=== PATIENT | female | born 2000 | race Caucasian/White ===

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

== ENCOUNTER → 2021-02-24 15:52 | Outpatient (CLI) | payer OTHER, SELFPAY ==
[2021-02-24 15:33] VITALS: BMI 33.3
[2021-02-24 17:43] LABS: Chlamydia Trachomatis by PCR Negative (Negative); Neisserai gonorrhoeae by PCR Negative (Negative); Probe Check PASS; Sample Adequacy Control PASS; Specimen Processing Control PASS
== END ==
PROVIDERS: PCP Family Medicine; Visit Provider Nurse Practitioner Women's Health
DX: Z11.3 Encounter for screening for infections with a predominantly sexual mode of transmission (principal)
CPT/HCPCS: 87491; 87591

== ENCOUNTER → 2022-04-21 | Outpatient (CLI) | payer OTHER, SELFPAY ==
[2022-04-28 10:52] LABS: HPV Reflexed? NOT INDICATED
== END | disposition home or self-care (01) ==
LOC: LABSPEC 16:05
PROVIDERS: PCP Family Medicine; Referring Provider Nurse Practitioner Women's Health; Visit Provider Nurse Practitioner Women's Health
DX: Z12.4 Encounter for screening for malignant neoplasm of cervix (principal)
CPT/HCPCS: 88175; G0145

== ENCOUNTER 2023-11-11 10:38 | Emergency (ER) | payer BC, SELFPAY ==
[2023-11-11 10:39] VITALS: BP 141/79; PULSE 141; RESP 16; TEMP 36.1; O2SAT 100; BMI 28.6
[2023-11-11 11:15] LABS: Absolute Neutrophil Count 11.1 X10^3/uL (2.0-7.7); Basophil# 0.07 X10^3/uL; Basophil% 0.5 % (0-1); Eosinophil# 0.03 X10^3/uL; Eosinophils% 0.2 % (0-5); Hematocrit 40.8 % (37-47); Hemoglobin 13.4 g/dL (12.0-15.0); Lymphocyte % 13.9 % (19-41); Mean Corp Hgb Conc 32.8 g/dL (32-36); Mean Corpuscular Hgb 28.6 pg (27.0-32.0); Mean Corpuscular Volume 87.2 fL (81-99); Monocyte# 0.54 X10^3/uL; Monocyte% 3.9 % (0-10); NRBC Flagged by Analyzer 0 % (0-5); Neutrophil # 11.11 X10^3/uL (2.7-7.7); Neutrophil % 81.1 % (47-70); Platelet Count 334 K/mm3 (150-450); RBC Distribution Width CV 13.2 % (11.6-14.6); RBC Distribution Width SD 41.6 fl (35.1-43.9); Red Blood Count 4.68 M/mm3 (4.2-5.4); White Blood Count 13.7 K/mm3 (4.4-11.0)
--- NOTE | 2023-11-11 11:20 | RAD_ITS ---
STUDY: X-RAY CHEST REASON FOR EXAM: Female, 23 years old. Dyspnea TECHNIQUE: Single AP portable view of the chest. COMPARISON: None. FINDINGS: EKG electrodes are seen The lungs are clear and expanded. There is no demonstrated pleural abnormality. Normal size heart. Normal mediastinum and andrey. Normal visualized pulmonary arteries. Normal visualized aortic arch and descending thoracic aorta. Normal visualized thoracic spine. Normal visualized ribs, clavicles, and shoulders. There is no demonstrated abnormality of the visualized soft tissue structures of the upper abdomen. RAD/Chest 1 View (Portable) IMPRESSION: Normal x-ray examination of the chest. Electronically Signed: Rylan Elias MD at 11:56 EDT ,
--- NOTE | 2023-11-11 11:24 | EX.ED.DYSGE1 ---
HPI History of Present Illness Chief Complaint: Palpitations PFSH PFSH Allergy/AdvReac Type Severity Reaction Status Date / Time Latex, Natural Rubber Allergy HIVES Verified 11/11/23 10:40 Social History Smoking Status: Never smoker EXAM Physical Exam Const Vital Signs: 11/11/23 10:39 11/11/23 10:59 Temperature 96.9 F L Temperature Source Temporal Pulse Rate 141 H Respiratory Rate 16 Respiratory Effort Normal Non-Labored Blood Pressure 141/79 H Blood Pressure Mean 99 Pulse Ox 100 Oxygen Delivery Method Room Air MDM MDM Lab Data Labs: Laboratory Results - last 24 hr 11/11/23 10:55 WBC 13.7 H RBC 4.68 Hgb 13.4 Hct 40.8 MCV 87.2 MCH 28.6 MCHC 32.8 RDW Std Deviation 41.6 RDW Coeff of Stan 13.2 Plt Count 334 MPV 11.0 Immature Gran % (Auto) 0.400 Neut % (Auto) 81.1 H Lymph % (Auto) 13.9 L [place] % (Auto) 3.9 Eos % (Auto) 0.2 Baso % (Auto) 0.5 Absolute Neuts (auto) 11.1 H Absolute Lymphs (auto) 1.90 Nucleated RBC % 0 Discharge Plan Triage Chief Complaint: Palpitations ED Midlevel Provider: Edita Alfonso ED Provider: Clark Combs Dx/Rx/DC Orders Primary Care Provider: José Manuel Roach Referrals: José Manuel Roach DO [Primary Care Provider] -
[2023-11-11] MEDS: 0.9% Normal Saline (1000mL) 1,000 ML 999 ML IV (11:36)
[2023-11-11 11:37] LABS: D-Dimer Quantitative (DVT/PE) 0.31 FEU/ug/m (0.27-0.49)
[2023-11-11 11:45] LABS: Anion Gap 8 (5-15); BUN 8 mg/dL (7-18); BUN/Creat Ratio 8.4 RATIO (10-20); Calcium,Total 9.3 mg/dL (8.5-10.1); Chloride 111 mmol/L (98-107); Creatinine, Serum 0.95 mg/dL (0.55-1.02); EST Glomerular Filtration Rate 77 mL/min (>60); Est Glom Filt Rate - Afr Amer 93 mL/min (>60); Estimated Creatinine Clearance 95.15 ml/min; Glucose 138 mg/dL (74-106); Potassium 3.3 mmol/L (3.5-5.1); Sodium Level 140 mmol/L (136-145); Troponin-I HS < 3 pg/mL (3.0-54.0)
--- NOTE | 2023-11-11 12:04 | EX.ED.DYSGE1 ---
HPI <SATYA Lux - Last Filed: 11/11/23 15:40> History of Present Illness Chief Complaint: Palpitations Narrative Narrative: 23-year-old female with past medical history of anxiety developed palpitations last evening at dinner. She states she could feel her heart racing and her watch alerted her the rate was anywhere from 100 to 190 bpm. She felt better this morning but when she went into work around 9 AM the palpitations started again. She was not exerting herself in any way. She has no chest pain or shortness of breath. She has nausea without vomiting. This morning she had water and a banana. She normally has 1 cup of coffee per day but did not have any caffeine today. The only medication she is on is control. She does report a history of anxiety which is worsened over the last month since her father and she is trying to get reestablished with a counselor. PFSH <SATYA Lux Last Filed: 11/11/23 15:40> [facility] Home Medications metoprolol tartrate 25 mg tablet 25 mg PO BID #60 tabs 11/11/23 [Rx Last Taken Unknown] Allergy/AdvReac Type Severity Reaction Status Date / Time Latex, Natural Rubber Allergy HIVES Verified 11/11/23 10:40 Social History Smoking Status: Never smoker ROS <SATYA Lux Last Filed: 11/11/23 15:40> ROS ED ROS Narrative Constitutional: Negative for fever, chills, malaise. CVS: Positive for palpitations. Negative for chest pain, syncope. Respiratory: Negative for shortness of breath, cough, orthopnea. GI: Negative for abdominal pain, vomiting. EXAM <SATYA Lux Last Filed: 11/11/23 15:40> Physical Exam Narrative Exam Narrative: CONST: Patient sitting in no acute distress. EYES: Normal inspection. NECK: Normal inspection. RESP: No respiratory distress, CTAB. CVS: Tachycardic with regular rhythm, no murmur, no gallop. ABD: Soft and nontender, no guarding or rebound, nondistended. SKIN: Color normal, no rash, warm, dry, intact. EXTREMITIES: Normal appearance, no pedal edema. NEURO: Oriented x4. PSYCH: Normal affect. Const Vital Signs: 11/11/23 10:39 11/11/23 10:59 11/11/23 12:36 Temperature 96.9 F L Temperature Source Temporal Pulse Rate 141 H 68 Respiratory Rate 16 18 Respiratory Effort Normal Non-Labored Blood Pressure 141/79 H 115/69 Blood Pressure Mean 99 84 Pulse Ox 100 100 Oxygen Delivery Method Room Air Room Air 11/11/23 13:00 11/11/23 14:02 Temperature 97 F L Temperature Source Pulse Rate 81 90 Respiratory Rate 16 12 Respiratory Effort Blood Pressure 118/73 116/76 Blood Pressure Mean 88 89 Pulse Ox 98 98 Oxygen Delivery Method Room Air <Dr. Ilsa Manjarrez DO - Last Filed: 11/11/23 13:59> Physical Exam Const Vital Signs: 11/11/23 10:39 11/11/23 10:59 11/11/23 12:36 Temperature 96.9 F L Temperature Source Temporal Pulse Rate 141 H 68 Respiratory Rate 16 18 Respiratory Effort Normal Non-Labored Blood Pressure 141/79 H 115/69 Blood Pressure Mean 99 84 Pulse Ox 100 100 Oxygen Delivery Method Room Air Room Air 11/11/23 13:00 11/11/23 14:02 Temperature 97 F L Temperature Source Pulse Rate 81 90 Respiratory Rate 16 12 Respiratory Effort Blood Pressure 118/73 116/76 Blood Pressure Mean 88 89 Pulse Ox 98 98 Oxygen Delivery Method Room Air MDM <SATYA Lux - Last Filed: 11/11/23 15:40> [facility] MDM Narrative Medical decision making narrative: Differential: ACS, PE, thyroid abnormality, arrhythmia Patient has palpitations. She appears well and nontoxic. HR is 141 in triage with otherwise stable vital signs. During my examination she is in no distress and telemetry shows sinus tachycardia at 120 bpm. On exam rate is tachycardic but regular with no murmurs. Lungs clear. EKG is nonischemic. Labs show nonspecific white count of 13.7, potassium 3.3. TSH WNL. D-dimer and troponin are negative. CXR shows no acute process. Patient was given IV fluids and p.o. potassium. Repeat EKG at 1231 shows sinus rhythm at 64 bpm with no significant abnormality. There is no evidence of WPW. Case was discussed with Dr. Heck in cardiology who recommended metoprolol 25 mg twice daily. She was also placed on a 48-hour Holter monitor from the ED and instructed to follow-up with the cardiology office. She was discharged in stable condition. I have personally performed a face to face assessment of the patient and have reviewed the ALDO Note. I performed a substantive portion of the visit including all aspects of the following. My lezama findings include: History is [patient presents with tachycardia that started last night. She states that she had intermittent heart rates to 190 on her Apple Watch. She felt have a tightness in her chest. [place] little bit lightheaded. Never had anything like this happen before. She states her father a month ago and she has history of anxiety. Patient denies history of PE or DVT although she did have recent travel to [place] [address] This morning she felt better but then started having symptoms again so she presents for evaluation. Denies recent illness.] Exam is [HESANDOR-PERNARENDRA, EOMI. Cranial nerves II through XII grossly intact. TMs clear. Mucous membranes moist. No adenopathy. Cardiovascular-regular rate and rhythm without murmur or ectopy Lungs-clear to auscultation, chest wall stable without crepitus or subcu emphysema Abdomen-normoactive bowel sounds, soft, nontender, no rebound or rigidity, no peritoneal signs. Extremities-intact ?4, normal range of motion, normal pulses, atraumatic] Medical Decison Making [patient presents with tachycardia up to 190 documented on her Apple Watch. Concern for SVT based on history. No prior history of SVT. EKG here initially showed sinus rhythm with rate of 123 bpm with some nonspecific ST changes. CBC with differential slightly elevated, 13.7 with hemoglobin 13 and platelet count of 334. D-dimer was normal at 0.31. Troponin was negative less than 3. 1 view chest x-ray was unremarkable. I will obtain a repeat EKG that now while I am in the room heart rate down into the 70s and 80s. On the monitor appears that she may have a shortened [place] interval.] Repeat EKG showed sinus rhythm with rate of 64 bpm without any evidence of significant [place] shortening or delta wave. Did discuss case with cardiology who recommended beta-elisa metoprolol 25 mg twice a day and Holter monitor and outpatient follow-up. Discussed with patient she is and she is in agreement. Concern would be for SVT. Other additions or changes: [None] Lab Data Attestation: I reviewed the patient's lab results. Labs: Laboratory Results - last 24 hr 11/11/23 11/11/23 11/11/23 10:55 11:15 13:40 WBC 13.7 H RBC 4.68 Hgb 13.4 Hct 40.8 MCV 87.2 MCH 28.6 MCHC 32.8 RDW Std Deviation 41.6 RDW Coeff of Stan 13.2 Plt Count 334 MPV 11.0 Immature Gran % (Auto) 0.400 Neut % (Auto) 81.1 H Lymph % (Auto) 13.9 L [place] % (Auto) 3.9 Eos % (Auto) 0.2 Baso % (Auto) 0.5 Absolute Neuts (auto) 11.1 H Absolute Lymphs (auto) 1.90 Nucleated RBC % 0 D-Dimer Quant (PE/DVT) 0.31 Sodium 140 Potassium 3.3 L Chloride 111 H Carbon Dioxide 21.0 Anion Gap 8 BUN 8 Creatinine 0.95 Estim Creat Clear Calc 95.15 Est GFR (MDRD) Af Amer 93 Est GFR (MDRD) Non-Af 77 BUN/Creatinine Ratio 8.4 L Glucose 138 H Calcium 9.3 Troponin I High Sens < 3 L TSH 0.94 Serum , Qual NEGATIVE Radiography Diagnostic Testing: Clinical Impression(s) from Imaging Studies Chest X-Ray 11/11/23 11:20 IMPRESSION: Normal x-ray examination of the chest. Electronically Signed: Rylan Elias MD at 11:56 EDT Reading Location ID and State: [address] [place] [address] , Service support , ED attending interpretation of 1-view chest x-ray shows normal heart size, no acute infiltrate, edema, or effusion. EKG Initial EKG: Attestation: I personally reviewed and interpreted this EKG as follows: Interpretation: No Acute Injury Pattern and Sinus Tachycardia Comments: Sinus tachycardia at 123 bpm No acute ischemic changes <Dr. Ilsa Manjarrez, DO - Last Filed: 11/11/23 13:59> [facility] Narrative Medical decision making narrative: Patient has palpitations. She appears well and nontoxic. HR is 141 in triage with otherwise stable vital signs. During my examination she is in no distress and telemetry shows sinus tachycardia at 120 bpm. On exam rate is tachycardic but regular with no murmurs. Lungs clear. EKG is nonischemic. Labs show nonspecific white count of 13.7, potassium 3.3. TSH WNL. D-dimer and troponin are negative. CXR shows no acute process. Patient was given IV fluids and p.o. potassium. Repeat EKG at 1231 shows sinus rhythm at 64 bpm with no significant abnormality. There is no evidence of WPW. I have personally performed a face to face assessment of the patient and have reviewed the ALDO Note. I performed a substantive portion of the visit including all aspects of the following. My lezama findings include: History is [patient presents with tachycardia that started last night. She states that she had intermittent heart rates to 190 on her Apple Watch. She felt have a tightness in her chest. [place] little bit lightheaded. Never had anything like this happen before. She states her father a month ago and she has history of anxiety. Patient denies history of PE or DVT although she did have recent travel to [place] [address] This morning she felt better but then started having symptoms again so she presents for evaluation. Denies recent illness.] Exam is [HEENT-PERRLA, EOMI. Cranial nerves II through XII grossly intact. TMs clear. Mucous membranes moist. No adenopathy. Cardiovascular-regular rate and rhythm without murmur or ectopy Lungs-clear to auscultation, chest wall stable without crepitus or subcu emphysema Abdomen-normoactive bowel sounds, soft, nontender, no rebound or rigidity, no peritoneal signs. Extremities-intact ?4, normal range of motion, normal pulses, atraumatic] Medical Decison Making [patient presents with tachycardia up to 190 documented on her Apple Watch. Concern for SVT based on history. No prior history of SVT. EKG here initially showed sinus rhythm with rate of 123 bpm with some nonspecific ST changes. CBC with differential slightly elevated, 13.7 with hemoglobin 13 and platelet count of 334. D-dimer was normal at 0.31. Troponin was negative less than 3. 1 view chest x-ray was unremarkable. I will obtain a repeat EKG that now while I am in the room heart rate down into the 70s and 80s. On the monitor appears that she may have a shortened [place] interval.] Repeat EKG showed sinus rhythm with rate of 64 bpm without any evidence of significant [place] shortening or delta wave. Did discuss case with cardiology who recommended beta-elisa metoprolol 25 mg twice a day and Holter monitor and outpatient follow-up. Discussed with patient she is and she is in agreement. Concern would be for SVT. Other additions or changes: [None] Lab Data Labs: Laboratory Results - last 24 hr 11/11/23 11/11/23 11/11/23 10:55 11:15 13:40 WBC 13.7 H RBC 4.68 Hgb 13.4 Hct 40.8 MCV 87.2 MCH 28.6 MCHC 32.8 RDW Std Deviation 41.6 RDW Coeff of Stan 13.2 Plt Count 334 MPV 11.0 Immature Gran % (Auto) 0.400 Neut % (Auto) 81.1 H Lymph % (Auto) 13.9 L [place] % (Auto) 3.9 Eos % (Auto) 0.2 Baso % (Auto) 0.5 Absolute Neuts (auto) 11.1 H Absolute Lymphs (auto) 1.90 Nucleated RBC % 0 D-Dimer Quant (PE/DVT) 0.31 Sodium 140 Potassium 3.3 L Chloride 111 H Carbon Dioxide 21.0 Anion Gap 8 BUN 8 Creatinine 0.95 Estim Creat Clear Calc 95.15 Est GFR (MDRD) Af Amer 93 Est GFR (MDRD) Non-Af 77 BUN/Creatinine Ratio 8.4 L Glucose 138 H Calcium 9.3 Troponin I High Sens < 3 L TSH 0.94 Serum , Qual NEGATIVE Radiography Diagnostic Testing: Clinical Impression(s) from Imaging Studies Chest X-Ray 11/11/23 11:20 IMPRESSION: Normal x-ray examination of the chest. Electronically Signed: Rylan Elias MD at 11:56 EDT , Discharge Plan Triage Chief Complaint: Palpitations ED Midlevel Provider: Edita Alfonso ED Provider: Ilsa Manjarrez Dx/Rx/DC Orders Clinical Impression: Palpitations, Tachycardia Instructions: ED Palpitations Prescriptions: New metoprolol tartrate 25 mg tablet 25 mg PO BID Qty: 60 0RF Primary Care Provider: José Manuel Roach Referrals: Kevin Arteaga MD [Med Staff - Active Staff] - 3-5 Days José Manuel Roach DO [Primary Care Provider] - Freddy Sanches MD [Med Staff - Active Staff] - Disposition Disposition: Home, Self Care Discharge Date/Time: 11/11/23 14:26
[2023-11-11] MEDS: Potassium Chloride Oral Tablet 20 MEQ PO (12:16)
--- NOTE | 2023-11-11 12:26 | EKG12_ITS ---
Test Reason : PALPATATIONS Blood Pressure : / mmHG Vent. Rate : 123 BPM Atrial Rate : 123 BPM P-R Int : 130 ms QRS Dur : 080 ms QT Int : 312 ms P-R-T Axes : 076 060 051 degrees QTc Int : 446 ms Sinus tachycardia Otherwise normal ECG Confirmed by TERRELL HODGE, CHERYL ([id number]), business editor IZABELLA SARABIA ([id number]) on 11/15/2023 11:01:06 AM Referred By: Confirmed By:CHERYL TEJADA MD
--- NOTE | 2023-11-11 12:30 | ED.RN ---
NO OLD EKG
[2023-11-11 12:36] VITALS: BP 115/69; PULSE 68; RESP 18; O2SAT 100
[2023-11-11 12:40] LABS: Thyroid Stim Hormone (TSH) 0.94 uIU/mL (0.358-3.74)
[2023-11-11 13:00] VITALS: BP 118/73; PULSE 81; RESP 16; O2SAT 98
[2023-11-11 13:58] LABS: Internal QC Validated? YES +Cl - CLEAR BKGD; Pregnancy, Serum, hCG Quali. NEGATIVE Negative
[2023-11-11 14:02] VITALS: BP 116/76; PULSE 90; RESP 12; TEMP 36.1; O2SAT 98
[2023-11-11] MEDS: Metoprolol Tartrate 25 MG Tablet PO (14:24)
== END 2023-11-11 14:26 | disposition home or self-care (01) ==
PROVIDERS: Emergency Medicine; Physician Assistant; Emergency Provider Emergency Medicine; PCP Family Medicine; Visit Provider Emergency Medicine
DX: R00.2 Palpitations (principal); R00.0 Tachycardia, unspecified
CPT/HCPCS: 71045; 80048; 84443; 84484; 84703; 85025; 85379; 93005; 99283; J7030; A4216

== ENCOUNTER → 2023-11-11 | Outpatient (CLI) | payer BC, SELFPAY | END | disposition home or self-care (01) | LOC: CVS 13:25 | PROVIDERS: PCP Family Medicine; Visit Provider Emergency Medicine | DX: Z00.00 Encounter for general adult medical examination without abnormal findings (principal) ==

== ENCOUNTER → 2025-07-02 | Outpatient (CLI) | payer BC, SELFPAY ==
--- OUTSIDE RECORDS SUMMARY | 2025-07-02 19:01 | XMS RPT_ITS | CCD ---
Author Organization [facility] Care Team Providers Care Deliverer Outside Name Role Phone Gigi Tamayo Primary Care Provider Dr. Gigi Tamayo Primary Care Provider Dr. Gigi Tamayo Referring Provider Luisana NAILS, ADONAY Patricia Attending Provider Gigi Tamayo DO Primary Care Provider Gigi Tamayo DO Primary Care Provider José Manuel Roach DO Primary Care Provider Dr. José Manuel Roach DO Primary Care Provider [phone] Dr. José Manuel Roach DO Referring Provider Dane NAILS-CAmee Attending Provider [phone] Amee Vela NP Attending Unavailable José Manuel Roach Referring Unavailable José Manuel Roach Primary Care Unavailable Belem Lieberman NP Attending Unavailable José Manuel Roach Referring Unavailable José Manuel Roach Primary Care Unavailable José Manuel Roach Primary Care Unavailable Del Malagon Referring Unavailable Del Malagon Attending Unavailable José Manuel Roach Primary Care Unavailable Amee Vela NP Attending Unavailable José Manuel Roach Referring Unavailable Loreta Mai DO Primary Care Provider [phone] BERTHA MAGAÑA Attending Unavailable JOSÉ MANUEL ROACH Primary Care Unavailable LORETA MAI Attending Unavailable LORETA MAI Primary Care Unavailable Allergies Allergy Classification Reported Allergen(s) Allergy Type Date of Onset Reaction(s) Facility (14 sources) Cephalexin Drug Allergy 9 Nausea And Vomiting [place], [place] (3 sources) Latex Allergy to substance 1 itching [facility] (12 sources) Latex Allergy to substance 7 Itching [facility] (1 source) natural latex rubber Allergy to substance 5 HIVES [facility] (1 source) Cephalexin Drug Allergy 5 [facility] (1 source) Latex Drug allergy (disorder) 5 [facility] (1 source) natural latex rubber Drug allergy (disorder) 5 [facility] Medications Current Medications Medication Drug Class(es) Dates Sig (Normalized) Sig (Original) citalopram 10 mg oral tablet (13 sources) Serotonin Reuptake Inhibitor Start: 08-21-2024 End: 02-08-2026 take 1 tablet by mouth once daily citalopram (CeleXA) 10 MG tablet Indications: Major depressive disorder with single episode, in full remission (HCC) Take 1 tablet (10 mg) by mouth daily. 90 tablet 3 02/13/2025 02/08/2026 Active Start: 11-15-2023 End: 07-01-2024 take 1 tablet by mouth once daily Citalopram 10 mg tablet Discontinued 10 mg PO daily December 09, 2023 12:00am June 19, 2024 10:03am clarithromycin 500 mg oral tablet (1 source) Macrolide Antimicrobial Start: 05-26-2019 End: 06-05-2019 take 1 tablet by mouth twice daily clarithromycin (BIAXIN) 500 MG tablet Take 1 tablet by mouth 2 times daily for 10 days 20 tablet 0 05/26/2019 06/05/2019 Active Desog-E.Estradiol/E. Estradiol (20 sources) Progestin, Estrogen Start: 06-20-2024 take 0.15 tablet by mouth once daily Desog-E.Estradiol/E .Estradiol (Kariva (28)) 0.15-0.02 mgx21 /0.01 mg x 5 tablet Active 1 {tbl} PO DAILY June 20, 2024 9:15am Start: 04-11-2024 End: 06-20-2024 take 0.15 tablet by mouth once daily Desog-E.Estradiol/E.Estradiol (Kariva (2 8)) 0.15-0.02 mgx21 /0.01 mg x 5 tablet Discontinued 1 {tbl} PO DAILY April 11, 2024 4:22pm June 20, 2024 9:15am Start: 06-15-2023 End: 04-11-2024 take 0.15 tablet by mouth once daily Desog-E.Estradiol/E.Estradiol (Kariva (2 8)) 0.15-0.02 mgx21 /0.01 mg x 5 tablet Discontinued 1 {tbl} PO DAILY June 15, 2023 11:05am April 11, 2024 4:22pm Start: 06-15-2023 take 0.15 tablet by mouth once daily Desog-E.Estradiol/E.Estradiol (Kariva (2 8)) 0.15-0.02 mgx21 /0.01 mg x 5 tablet Active 1 TABLET PO DAILY June 15, 2023 11:05am Start: 08-16-2022 Volnea 0.15-0. 02/0.01 MG (21/5) tablet 08/16/2022 Active Start: 08-16-2022 Volnea 0.15-0. 02/0.01 MG (21/5) tablet Start: 04-21-2022 End: 06-15-2023 take 0.15 tablet by mouth once daily Desog-E.Estradiol/E.Estradiol (Kariva (2 8)) 0.15-0.02 mgx21 /0.01 mg x 5 tablet Discontinued 1 {tbl} PO DAILY April 21, 2022 2:16pm June 15, 2023 11:05am Start: 04-21-2022 End: 06-15-2023 take 0.15 tablet by mouth once daily Desog-E.Estradiol/E.Estradiol (Kariva (2 8)) 0.15-0.02 mgx21 /0.01 mg x 5 tablet Discontinued 1 TABLET PO DAILY April 21, 2022 2:16pm June 15, 2023 11:05am Start: 04-21-2022 take 0.15 tablet by mouth once daily Desog-E.Estradiol/E.Estradiol (Kariva (2 8)) 0.15-0.02 mgx21 /0.01 mg x 5 tablet Active 1 TABLET PO DAILY April 21, 2022 2:16pm Start: 03-30-2022 End: 04-21-2022 take 0.15 tablet by mouth once daily Desog-E.Estradiol/E.Estradiol (Kariva (2 8)) 0.15-0.02 mgx21 /0.01 mg x 5 tablet Discontinued 1 {tbl} PO DAILY March 30, 2022 9:06am April 21, 2022 2:17pm Start: 03-30-2022 End: 04-21-2022 take 0.15 tablet by mouth once daily Desog-E.Estradiol/E.Estradiol (Kariva (2 8)) 0.15-0.02 mgx21 /0.01 mg x 5 tablet Discontinued 1 TABLET PO DAILY March 30, 2022 9:06am April 21, 2022 2:17pm Start: 01-12-2022 End: 03-30-2022 take 0.15 tablet by mouth once daily Desog-E.Estradiol/E.Estradiol (Kariva (2 8)) 0.15-0.02 mgx21 /0.01 mg x 5 tablet Discontinued 1 {tbl} PO DAILY January 12, 2022 11:55am March 30, 2022 9:06am Start: 01-12-2022 End: 03-30-2022 take 0.15 tablet by mouth once daily Desog-E.Estradiol/E.Estradiol (Kariva (2 8)) 0.15-0.02 mgx21 /0.01 mg x 5 tablet Discontinued 1 TABLET PO DAILY January 12, 2022 11:55am March 30, 2022 9:06am Start: 11-24-2021 End: 01-12-2022 take 0.15 tablet by mouth once daily Desog-E.Estradiol/E.Estradiol (Kariva (2 8)) 0.15-0.02 mgx21 /0.01 mg x 5 tablet Discontinued 1 {tbl} PO DAILY November 24, 2021 10:02am January 12, 2022 11:55am Start: 11-24-2021 End: 01-12-2022 take 0.15 tablet by mouth once daily Desog-E.Estradiol/E.Estradiol (Kariva (2 8)) 0.15-0.02 mgx21 /0.01 mg x 5 tablet Discontinued 1 TABLET PO DAILY November 24, 2021 10:02am January 12, 2022 11:55am Start: 02-24-2021 End: 11-24-2021 take 0.15 tablet by mouth once daily Desog-E.Estradiol/E.Estradiol (Kariva (2 8)) 0.15-0.02 mgx21 /0.01 mg x 5 tablet Discontinued 1 {tbl} PO DAILY February 24, 2021 3:39pm November 24, 2021 10:02am Start: 02-24-2021 End: 11-24-2021 take 0.15 tablet by mouth once daily Desog-E.Estradiol/E.Estradiol (Kariva (2 8)) 0.15-0.02 mgx21 /0.01 mg x 5 tablet Discontinued 1 TABLET PO DAILY February 24, 2021 3:39pm November 24, 2021 10:02am Start: 02-18-2021 End: 02-24-2021 take 0.15 tablet by mouth once daily Desog-E.Estradiol/E.Estradiol (Kariva (2 8)) 0.15-0.02 mgx21 /0.01 mg x 5 tablet Discontinued 1 {tbl} PO DAILY February 18, 2021 8:24am February 24, 2021 3:39pm Start: 02-18-2021 End: 02-24-2021 take 0.15 tablet by mouth once daily Desog-E.Estradiol/E.Estradiol (Kariva (2 8)) 0.15-0.02 mgx21 /0.01 mg x 5 tablet Discontinued 1 TABLET PO DAILY February 18, 2021 8:24am February 24, 2021 3:39pm Start: 12-23-2020 End: 02-18-2021 take 0.15 tablet by mouth once daily Desog-E.Estradiol/E.Estradiol (Kariva (2 8)) 0.15-0.02 mgx21 /0.01 mg x 5 tablet Discontinued 1 {tbl} PO DAILY December 23, 2020 11:06am February 18, 2021 8:24am Start: 12-23-2020 End: 02-18-2021 take 0.15 tablet by mouth once daily Desog-E.Estradiol/E.Estradiol (Kariva (2 8)) 0.15-0.02 mgx21 /0.01 mg x 5 tablet Discontinued 1 TABLET PO DAILY December 23, 2020 11:06am February 18, 2021 8:24am Start: 10-29-2020 End: 12-23-2020 take 0.15 tablet by mouth once daily Desog-E.Estradiol/E.Estradiol (Kariva (2 8)) 0.15-0.02 mgx21 /0.01 mg x 5 tablet Discontinued 1 {tbl} PO DAILY October 29, 2020 9:00am December 23, 2020 11:06am Start: 10-29-2020 End: 12-23-2020 take 0.15 tablet by mouth once daily Desog-E.Estradiol/E.Estradiol (Kariva (2 8)) 0.15-0.02 mgx21 /0.01 mg x 5 tablet Discontinued 1 TABLET PO DAILY October 29, 2020 9:00am December 23, 2020 11:06am Start: 02-15-2020 End: 10-29-2020 take 0.15 tablet by mouth once daily Desog-E.Estradiol/E.Estradiol (Kariva (2 8)) 0.15-0.02 mgx21 /0.01 mg x 5 tablet Discontinued 1 {tbl} PO DAILY February 15, 2020 9:59am October 29, 2020 9:00am Start: 02-15-2020 End: 10-29-2020 take 0.15 tablet by mouth once daily Desog-E.Estradiol/E.Estradiol (Kariva (2 8)) 0.15-0.02 mgx21 /0.01 mg x 5 tablet Discontinued 1 TABLET PO DAILY February 15, 2020 9:59am October 29, 2020 9:00am Start: 11-16-2019 End: 02-15-2020 Desog-E.Estradiol/E.Estradio l (Kariva (28)) 0.15-0.02 mgx21 /0.01 mg x 5 tablet Discontinued 1 {tbl} PO .COMPLEX November 16, 2019 11:23am February 15, 2020 10:00am 1 tab PO active pills only for continuous cycling; Start: 11-16-2019 End: 02-15-2020 Desog-E.Estradiol/E.Estradio l (Kariva (28)) 0.15-0.02 mgx21 /0.01 mg x 5 tablet Discontinued 1 TABLET PO .COMPLEX November 16, 2019 11:23am February 15, 2020 10:00am 1 tab PO active pills only for continuous cycling; Start: 09-12-2019 End: 11-16-2019 Desog-E.Estradiol/E.Estradio l (Kariva (28)) 0.15-0.02 mgx21 /0.01 mg x 5 tablet Discontinued 1 {tbl} PO .COMPLEX September 12, 2019 10:39am November 16, 2019 11:23am 1 tab PO active pills only for continuous cycling; Start: 09-12-2019 End: 11-16-2019 Desog-E.Estradiol/E.Estradio l (Kariva (28)) 0.15-0.02 mgx21 /0.01 mg x 5 tablet Discontinued 1 TABLET PO .COMPLEX September 12, 2019 10:39am November 16, 2019 11:23am 1 tab PO active pills only for continuous cycling; Start: 05-15-2019 KARIVA 0.15-0. 02/0.01 MG (21/5) per tablet Start: 09-07-2018 End: 09-12-2019 Desog-E.Estradiol/E.Estradio l (Kariva (28)) 0.15-0.02 mgx21 /0.01 mg x 5 tablet Discontinued 1 {tbl} PO .COMPLEX September 07, 2018 5:09pm September 12, 2019 10:39am 1 tab PO active pills only for continuous cycling; Start: 09-07-2018 End: 09-12-2019 Desog-E.Estradiol/E.Estradio l (Kariva (28)) 0.15-0.02 mgx21 /0.01 mg x 5 tablet Discontinued 1 TABLET PO .COMPLEX September 07, 2018 5:09pm September 12, 2019 10:39am 1 tab PO active pills only for continuous cycling; Start: 02-15-2018 End: 09-07-2018 take 0.15 tablet by mouth once daily Desog-E.Estradiol/E.Estradiol (Kariva (2 8)) 0.15-0.02 mgx21 /0.01 mg x 5 tablet Discontinued 1 {tbl} PO daily February 15, 2018 3:48pm September 07, 2018 5:10pm Start: 02-15-2018 End: 09-07-2018 take 0.15 tablet by mouth once daily Desog-E.Estradiol/E.Estradiol (Kariva (2 8)) 0.15-0.02 mgx21 /0.01 mg x 5 tablet Discontinued 1 TABLET PO daily February 15, 2018 3:48pm September 07, 2018 5:10pm Start: 02-15-2018 End: 02-15-2018 take 0.15 tablet by mouth once daily Desog-E.Estradiol/E.Estradiol (Kariva (2 8)) 0.15-0.02 mgx21 /0.01 mg x 5 tablet Discontinued 1 {tbl} PO daily February 15, 2018 3:47pm February 15, 2018 3:49pm Start: 02-15-2018 End: 02-15-2018 take 0.15 tablet by mouth once daily Desog-E.Estradiol/E.Estradiol (Kariva (2 8)) 0.15-0.02 mgx21 /0.01 mg x 5 tablet Discontinued 1 TABLET PO daily February 15, 2018 3:47pm February 15, 2018 3:49pm Start: 09-15-2017 End: 02-15-2018 take 0.15 tablet by mouth once daily Desog-E.Estradiol/E.Estradiol (Kariva (2 8)) 0.15-0.02 mgx21 /0.01 mg x 5 tablet Discontinued 1 {tbl} PO daily September 15, 2017 12:45pm February 15, 2018 3:48pm Start: 09-15-2017 End: 02-15-2018 take 0.15 tablet by mouth once daily Desog-E.Estradiol/E.Estradiol (Kariva (2 8)) 0.15-0.02 mgx21 /0.01 mg x 5 tablet Discontinued 1 TABLET PO daily September 15, 2017 12:45pm February 15, 2018 3:48pm Start: 07-20-2017 End: 09-15-2017 take 0.15 tablet by mouth once daily Desog-E.Estradiol/E.Estradiol (Kariva (2 8)) 0.15-0.02 mgx21 /0.01 mg x 5 tablet Discontinued 1 {tbl} PO daily July 20, 2017 1:00am September 15, 2017 12:49pm Start: 07-20-2017 End: 09-15-2017 take 0.15 tablet by mouth once daily Desog-E.Estradiol/E.Estradiol (Kariva (2 8)) 0.15-0.02 mgx21 /0.01 mg x 5 tablet Discontinued 1 TABLET PO daily July 20, 2017 1:00am September 15, 2017 12:49pm 24 hr metoprolol succinate 25 mg extended release oral tablet (13 sources) beta-Adrenergic Wolfgang Start: 01-15-2025 take 2 tablets by mouth once daily Metoprolol Succinate 25 mg tablet extended release 24 hr Active 12.5 mg PO daily January 15, 2025 12:00am Start: 07-11-2024 End: 07-31-2024 Metoprolol Tartrate 25 mg ta blet Discontinued 12.5 mg PO TWICE A DAY July 11, 2024 1:00am July 31, 2024 8:59am Start: 06-19-2024 End: 06-19-2024 take 1 tablet by mouth once daily Metoprolol Tartrate 25 mg tablet Discontinued 25 mg PO daily June 19, 2024 10:03am June 19, 2024 10:33am Start: 11-11-2023 End: 02-13-2025 take 1 tablet by mouth twice daily metoprolol tartrate (Lopressor) 25 MG tablet Take 25 mg by mouth 2 times daily. 11/11/2023 02/13/2025 Discontinued (Therapy completed) predniSONE 10 mg oral tablet (1 source) Start: 05-24-2019 End: 05-29-2019 take 1 tablet by mouth four times daily predniSONE (DELTASONE) 10 MG tablet Take 1 tablet by mouth 4 times daily for 5 days 20 tablet 0 05/24/2019 05/29/2019 Active Completed/Discontinued Medications Medication Drug Class(es) Dates Sig (Normalized) Sig (Original) adapalene 0.003 mg/mg / benzoyl peroxide 0.025 mg/mg topical gel (4 sources) Retinoid Start: 02-08-2023 End: 11-15-2023 Adapalene-Benzoyl Peroxide 0.3-2.5 % gel Start: 01-07-2023 End: 11-15-2023 Adapalene-Benzoyl Peroxide ( Epiduo Forte) 0.3-2.5 % gel Apply topically. 0 01/07/2023 11/15/2023 Discontinued cephalexin 500 mg oral capsule (3 sources) Cephalosporin Antibacterial Start: 05-12-2019 End: 05-20-2019 take 1 capsule by mouth every twelve hours Cephalexin 500 mg capsule Discontinued 500 mg PO Q12H 20 May 12, 2019 12:00am May 21, 2019 12:00am May 20, 2019 10:26am levoFLOXacin 500 mg oral tablet (3 sources) Quinolone Antimicrobial Start: 05-20-2019 End: 05-27-2019 take 1 tablet by mouth once daily Levofloxacin 500 mg tablet Discontinued 500 mg PO DAILY 7 May 20, 2019 12:00am May 26, 2019 12:00am May 27, 2019 12:09am ofloxacin 3 mg/ml ophthalmic solution (2 sources) Quinolone Antimicrobial Start: 03-03-2023 End: 11-15-2023 take 1 drop(s) into the eye(s) four times daily ofloxacin (Ocuflox) 0.3 % ophthalmic solution instill 1 drop into right eye four times a day 0 03/03/2023 11/15/2023 Discontinued ondansetron 4 mg oral tablet (6 sources) Serotonin-3 Receptor Antagonist Start: 12-09-2023 End: 06-19-2024 ondansetron (Zofran) 4 MG tablet Take 4 mg by mouth. 12/09/2023 06/13/2024 Discontinued (Med list cleanup) Start: 11-15-2023 End: 11-22-2023 take 1 tablet by mouth every eight hours as needed for nausea and vomiting ondansetron ODT (Zofran-ODT) 4 MG disintegrating tablet Take 1 tablet (4 mg) by mouth every 8 hours as needed for nausea or vomiting for up to 7 days. 20 tablet 0 11/15/2023 11/22/2023 Active PARoxetine hydrochloride 10 mg oral tablet (13 sources) Serotonin Reuptake Inhibitor Start: 04-21-2022 End: 06-15-2023 take 1 tablet by mouth once daily Paroxetine Hcl (Paxil) 10 mg tablet Discontinued 10 mg PO DAILY April 21, 2022 12:00am June 15, 2023 10:58am Start: 02-24-2021 End: 04-21-2022 take 1 tablet by mouth once daily Paroxetine Hcl (Paxil) 20 mg tablet Discontinued 20 mg PO DAILY February 24, 2021 12:00am April 21, 2022 2:11pm prednisoLONE acetate 10 mg/ml ophthalmic suspension (2 sources) Corticosteroid Start: 03-03-2023 End: 11-15-2023 take 1 drop(s) into the eye(s) four times daily prednisoLONE acetate (Pred-Forte) 1 % ophthalmic suspension instill 1 drop four times a day 0 03/03/2023 11/15/2023 Discontinued spironolactone 50 mg oral tablet (2 sources) Aldosterone Antagonist Start: 01-30-2023 End: 11-15-2023 take 1 tablet by mouth once daily in the morning spironolactone (Aldactone) 50 MG tablet Take 50 mg by mouth every morning. 0 01/30/2023 11/15/2023 Discontinued Problems Active Problems Problem Classification Problem Date Documented Da te Episodic/Chronic Adjustment disorders (12 sources) Grief finding; Translations: [Adjustment disorder with depressed mood] Onset: 12-14-2023 11-15-2023 Chronic Anxiety disorders (20 sources) Mixed anxiety and depressive disorder; Translations: [Anxiety disorder, unspecified] Onset: 08-16-2015 10-01-2022 Chronic Comment on above: This appears to be s ituational associated with the recent loss of her dad after she took care of him for 2 years following his stroke. She is back to work full-time. Fluid and electrolyte disorders (1 source) Hypokalemia; Translations: [Hypokalemia] 11-15-2023 Episodic Malaise and fatigue (1 source) Fatigue; Translations: [Other fatigue] Episodic Menstrual disorders (6 sources) Menorrhagia; Translations: [Excessive and frequent menstruation with regular cycle] 02-15-2020 Chronic Mood disorders (2 sources) Depressive disorder; Translations: [Depression] Onset: 07-29-2020 05-30-2022 Chronic Mood disorders (1 source) Mood disorders; Translations: [Depression, unspecified] Onset: 06-20-2024 Other injuries and conditions due to external causes (1 source) Abrasion and/or friction burn of skin; Translations: [Other injury of unspecified body region, initial encounter] 11-15-2023 Episodic Other lower respiratory disease (1 source) Cough; Translations: [Cough] Episodic Other nutritional; endocrine; and metabolic disorders (1 source) Weight loss; Translations: [Abnormal weight loss] Episodic Other skin disorders (1 source) Acne vulgaris; Translations: [Acne vulgaris] 02-12-2023 Episodic Retinal detachments; defects; vascular occlusion; and retinopathy (1 source) Detachment of retina of right eye; Translations: [Serous retinal detachment, right eye] 03-29-2023 Episodic Past or Other Problems Problem Classification Problem Date Documented Date Episodic/Chronic Cardiac dysrhythmias (13 sources) Tachycardia; Translations: [Tachycardia, unspecified] Onset: 12-14-2023 11-15-2023 Episodic Comment on above: The patient's palpit ations on the Holter correlated with sinus tachycardia. She did not have any significant ectopy documented. She denies any syncope or near syncope and reports that since she has been on antianxiety medications and has been seeing a counselor since her father her symptoms have essentially abated.The patient does have an iWatch we went over utilizing this to capture her rhythm with palpitations and how to print them out so that they can be brought to the office. Contraceptive and procreative management (12 sources) Oral contraception; Translations: [Encounter for surveillance of contraceptive pills] Onset: 10-01-2022 10-01-2022 Episodic Immunizations and screening for infectious disease (3 sources) Vaccination needed; Translations: [Encounter for immunization] Onset: 06-13-2024 06-13-2024 Episodic Residual codes; unclassified (12 sources) Family history of diabetes mellitus in first degree relative; Translations: [Family history of diabetes mellitus] Onset: 10-01-2022 10-01-2022 Episodic Results Test Name Value Interpretation Reference Range [facility] Office Visiton 02-13-2025 Follow-up visit [id number] June Schumacher 2000 F Date Provider Department Center 02/13/2025 LORETA BRICE [facility] Family History Problem Relation Age of Onset Anxiety disorder Mother High Blood Pressure Father Comments: alive Diabetes Father Heart disease Father No Known Problems Brother No Known Problems Brother No Known Problems Paternal Grandmother Comments: age 93 Coronary artery disease Paternal Grandfather Family Status - Relation Status Age at Mother Alive Father Alive Brother Alive Brother Alive Maternal Grandmother Alive Maternal Grandfather Alive Paternal Grandmother Paternal Grandfather Level of Service:64675 OR OFFICE/OUTPATIENT ESTABLISHED LOW MDM 20 MIN Reason for Visit and Comments: Establish Care [42] Normal [facility] Progress Noteon 02-13-2025 Progress Note [facility] [address] [facility] [id number] Visit type: Established Patient Reason for Visit: Establish Care Assessment and Plan Diagnoses and all orders for this visit: Major depressive disorder with single episode, in full remission (HCC) - citalopram (CeleXA) 10 MG tablet; Take 1 tablet (10 mg) by mouth daily. Chronic, stable, continue current management plan with celexa and therapy Follow up in 1 year No follow-ups on file. Subjective HPI Started celexa after the of her father. She tried to go off of it in May and didn't do well. 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 HENT: Negative for congestion, ear pain, hearing loss, postnasal drip, sore throat and trouble swallowing. Eyes: Negative for discharge, itching and visual disturbance. Respiratory: Negative for cough, shortness of breath and wheezing. Cardiovascular: Negative for chest pain, palpitations and leg swelling. Gastrointestinal: Negative for abdominal pain, constipation, diarrhea, nausea and vomiting. Endocrine: Negative for cold intolerance, heat intolerance, polydipsia, polyphagia and polyuria. Genitourinary: Negative for difficulty urinating, frequency, urgency, vaginal bleeding, vaginal discharge and vaginal pain. Musculoskeletal: Negative for arthralgias, back pain, joint swelling and myalgias. Skin: Negative for color change, rash and wound. Neurological: Negative for dizziness, tremors, seizures, speech difficulty, weakness, numbness and headaches. Hematological: Negative for adenopathy. Does not bruise/bleed easily. Psychiatric/Behaviora l: Negative for agitation, decreased concentration, dysphoric mood and sleep disturbance. The patient is not nervous/anxious. Allergies[1] Current Medications[2] Medical History[3] Social History[4] Surgical History[5] Surgical History[6] Family History[7] Objective BP 105/68 Pulse 85 Temp 36.8 ?C (98.3 ?F) Ht 5' 5" (1.651 m) Wt 175 lb (79.4 kg) SpO2 98% BMI 29.12 kg/m? Physical Exam Vitals and nursing note reviewed. Constitutional: General: She is not in acute distress. Appearance: Normal appearance. She is not ill-appearing. HENT: Head: Normocephalic and atraumatic. Eyes: Conjunctiva/sclera: Conjunctivae normal. Cardiovascular: Rate and Rhythm: Normal rate and regular rhythm. Pulses: Normal pulses. Heart sounds: Normal heart sounds. No murmur heard. No gallop. Pulmonary: Effort: Pulmonary effort is normal. No respiratory distress. Breath sounds: Normal breath sounds. No stridor. No wheezing, rhonchi or rales. Chest: Chest wall: No tenderness. Musculoskeletal: Cervical back: Neck supple. Right lower leg: No edema. Left lower leg: No edema. Neurological: General: No focal deficit present. Mental Status: She is alert and oriented to person, place, and time. Psychiatric: Mood and Affect: Mood normal. Behavior: Behavior normal. Thought Content: Thought content normal. Judgment: Judgment normal. Data Reviewed POCT: Labs: Imaging/Testing: Chart Clean Up: Medications Discontinued During This Encounter Medication Reason metoprolol tartrate (Lopressor) 25 MG tablet Therapy completed citalopram (CeleXA) 10 MG tablet Reorder Loreta Mai DO 02/13/2025 8:42 AM [1] Allergies Allergen Reactions Cephalexin Nausea And Vomiting Latex Itching Other reaction(s): itching [2] Current Outpatient Medications: Volnea 0.15-0.02/0.01 MG (03/01) tablet, , Disp: , Rfl: citalopram (CeleXA) 10 MG tablet, Take 1 tablet (10 mg) by mouth daily., Disp: 90 tablet, Rfl: 3 [3] Past Medical History: Diagnosis Date Anxiety and depression 2016 Family history of diabetes mellitus in father Retinal detachment of right eye due to tear of retina 01/2023 Uses oral contraception 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 Normal [facility] Cardiology Visit Reporton Cardiology Visit Report [facility] [address] [place] [address] OFFICE VISIT Date of Service: 01/15/25 MR#: [id number] Acct: [id number] Name: JUNE SCHUMACHER Rep #: [id number] : 2000 Provider: ADONAY wiley Age/Sex: 24/F [place] [facility] [place] Status: Signed HPI HPI History of Present Illness Details: This is a 24 year old female who presents to the office for a cardiovascular follow-up visit. 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 The patient has recently spent 2 years taking care of her dad who from a stroke. This occurred in September of 2023 and in October she was evaluated in the emergency department for palpitations and tachyarrhythmia. EKG at the time she was having palpitations showed a sinus tachycardia 123 bpm. As she was evaluated emergency department her heart rate slowed into the 80 bpm range. She has not had a recurrence of those palpitations since then she was placed on metoprolol 25 mg twice daily. The patient denies any history of diabetes hypertension or syncope. She denies any history of a drop-off in exercise tolerance. There is no family history of sudden cardiac there is a family history on her father side of significant atherosclerotic disease. The patient laboratory evaluation showed a TSH of 0.94 when she was in the emergency department her troponin was negative D-dimer was negative she did have a potassium of 3.3. Otherwise her labs were unremarkable. The patient wore a 48-hour Holter monitor during that time she did not have any palpitations dizziness. She had very rare PVCs and PACs average heart rate was 74 minimum heart rate 42 maximum heart rate was 171 in sinus tachycardia at 10 PM and at that time only reports that she complained of palpitations although she tells me she did not have any when she was wearing the monitor. She actually specifically said she did not have anything that reminded her of what she had when she went to the emergency department. From a cardiac standpoint, the patient is doing well. She denies any palpitations, chest pain, pressure or heaviness. She denies SOB, Orthopnea, and PND. She does not have bleeding issues; no blood in urine, stool, or nosebleeds. She denies any decrease in energy level, myalgias, or claudication. She does not have edema, or sudden weight gain. She denies lightheadedness, dizziness, syncopal or near syncopal episodes, and headaches. Intake Vital Signs 06/20/24 08:08 01/15/25 06:36 Height 5 ft 5 in 5 ft 5 in Weight: 175 lb BMI 29.1 BP 125/85 H Blood Pressure Location Lt brachial Position Sitting Respiration 18 Pulse 95 Pulse Source Monitor Pulse Oximetry (%) 98 Intake Visit Reasons: Medication Issues Press Helper Required: No Is patient in pain?: No Allergies latex Allergy (Mild, Verified 01/15/25 08:30) itching cephalexin Allergy (Verified 01/15/25 08:30) Vomiting Latex, Natural Rubber Allergy (Verified 01/15/25 08:30) HIVES Medications ???Medication ???Instructions ???Recorded ???Confirmed ???Type desogestrel-e.estradi ol 0.15 1 tab PO DAILY #84 tabs 06/20/24 0 01/15/25 Rx mg-0.02 mg(21)/e.estrad 0.01 mg(5) tablet (Kariva (28)) citalopram 10 mg tablet 10 mg PO QDAY 01/15/25 01/15/25 Hi story metoprolol succinate 25 mg 12.5 mg (1/2 x 25 mg) PO QDAY #45 01/15/25 01/15/25 Rx tablet,extended release 24 hr tabs Have you fallen in the past year?: No PFSH Medical History (Reviewed 01/15/25 @ 08:40 by Amee Vela [employer], FOOD ASSEMBLER [employer]EN-C) Right retinal detachment Anxiety and depression Palpitations Menorrhagia Acne Dysmenorrhea Surgical History (Reviewed 01/15/25 @ 08:40 by Amee Vela [employer], FOOD ASSEMBLER [employer]-C) History of eye surgery Family History Father Myocardial infarction CVA (cerebral vascular accident) L side paralysis. Currently in [place] assisted living for rehab Diabetes Grandfather No problems noted. Mother Anxiety Father Hypertension Diabetes Heart disease Grandfather CAD (coronary artery disease) Social History current occupational status: student current occupation: [employer] Smoking Status: Never smoker second hand exposure: No alcohol intake: never substance use type: does not use and marijuana caffeine: Yes Type: carbonated beverages what type of physical activity do you participate in: none seatbelt use: always additional social history: -Alex Works at [email or web address]. Moved back in with parents to help when dad comes home ROS Const Const: Negative for fatigue, weakness, headache(s) or frequent falls Eyes Eyes: Negative for blurry vision ENT ENT: Negative for headache(s), dizziness o (more content not included)... [facility] [id number] 36 Appt scheduled - patient aware that any issues that may happen before February 13 will need to be addressed with Dr. Roach [facility] 36 That's fine, but yomi l need to be NTP in first avail [facility] 36 Name of caller: Kelly espinoza Contact phone number: [phone] Relationship to Patient: patient Provider: Dr. Roach Practice: [facility] Chief Complaint/Reason for Call: Patient would like to see Dr. Mai as PCP, she wants a female provider if possible. Please send a note in MY chart and alayna her an appointment with Dr. Mai. Thank you Best time of day caller can be reached: any Patient advised that office/PCP has 24-48 business hours to return their call: Yes Normal [facility] Bird Cage Assembler Office Visit Reporton 06-20-2024 Bird Cage Assembler Office Visit Report [facility] [address] [place] [address], [address] [place] [address] OFFICE VISIT Date of Service: 06/20/24 MR#: [id number] Acct: [id number] Name: JUNE SCHUMACHER Rep #: [id number] : 2000 Provider: ADONAY lindquist Age/Sex: 23/F [facility] [place] [facility] Status: Signed Intake Vital Signs 06/15/23 10:59 12/09/23 09:26 06/19/24 09:00 06/20/24 08:03 06/20/24 08:08 Height 5 ft 5 in 5 ft 5 in 5 ft 5 in 5 ft 5 in 5 ft 5 in Weight: 170 lb 6 oz BMI 28.3 BP 118/72 Intake Visit 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: 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) Chief Complaint: Annual Press Helper Required: No Is patient in pain?: No Allergies latex Allergy (Mild, Verified 06/20/24 08:03) itching cephalexin Allergy (Verified 06/20/24 08:03) Vomiting Latex, Natural Rubber Allergy (Verified 06/20/24 08:03) HIVES Medications ???Medication ???Instructions ???Recorded ???Confirmed ???Type desogestrel-e.estradi ol 0.15 1 tab PO DAILY #84 tabs 06/20/24 06/20/24 Rx mg-0.02 mg(21)/e.estrad 0.01 mg(5) tablet (Kariva (28)) Is last menstrual period known: Yes Last Menstrual Period: 05/30/24 Post menopausal: No Patient : No : No PFSH Medical History Right retinal detachment Anxiety and depression Palpitations Menorrhagia Acne Dysmenorrhea Surgical History History of eye surgery Family History Father Myocardial infarction CVA (cerebral vascular accident) L side paralysis. Currently in [place] assisted living for rehab Diabetes Grandfather No problems noted. Mother Anxiety Father Hypertension Diabetes Heart disease Grandfather CAD (coronary artery disease) Social History current occupational status: student current occupation: [employer] Smoking Status: Never smoker second hand exposure: No alcohol intake: never substance use type: does not use and marijuana caffeine: Yes Type: carbonated beverages what type of physical activity do you participate in: none seatbelt use: always additional social history: -Alex Works at [email or web address]. Moved back in with parents to help when dad comes home History 0 Elective abortions Hx Para Spontaneous abortions Hx # Term Pregnancies Ectopic pregnancies Hx # Pregnancies Multiple births # of living children HPI Encounter for routine gynecological examination Details: JUNE SCHUMACHER is a 23 year old who presents for annual exam. Denies concerns. Wishes to continue OCP. Was caring for her dad-he passed in September. States she is doing better now. She and her mom have taken several trips since then. She and just bought a house. 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 Has 4 clients. No plans-at least 3 years. Last PAP: 2021 History of abnormal PAP: no Last mammogram: na Other preventative health care screenings: [facility] Female Reproductive History Last Menstrual Period: 05/30/24 Cycle Length: 21-35 Questions: metorrhagia: No, sexually active: Yes, dyspareunia: No and PCB: No ROS Const Constitutional: Denies fatigue, weight gain or weight loss Cardio Card: Denies chest pain Resp Resp: Denies cough or dyspnea on exertion GI GI: Denies abdominal pain, bloating, change in stool character, constipation or vomiting : Reports as per HPI; Denies difficulty voiding, pelvic pain, urinary frequency, urinary incontinence, urinary urgency, vaginal discharge or vaginal pruritus Exam Const General: cooperative, healthy appearing, no acute distress and well developed Orientation: alert, oriented to person and oriented to place [facility] Head: normal to inspection Neck Neck: normal visual inspection Thyroid: thyroid normal Lymphatic: no lymphadenopathy noted Chest Breast inspection: normal inspection of the breasts and normal inspection of the axillae Breast palpation: normal palpation of the breasts, normal palpation of the axillae and no axillary lymphadenopathy Resp Effort Inspection: normal respiratory effort GI Palpation: soft, no masses and nontender Rectal Exam: deferred External Female Exam: normal external appearance and normal appearance of the urethra Urethra: normal appearance of the urethra and normal palpation Speculum Exam - Vagina: normal appearance of the vagina and normal vaginal discharge Speculum Exam - Cervix: normal appearance of the cervix Bimanual Exam- Vagina Uterus: normal bimanual exam, uterine size normal, uterine shape normal and non-tender Bimanual Exam- Adnexa, other: normal adnexae, no masses, normal and non-tender Pelvic Support: normal Neuro General: patient alert (more content not included)... Normal [facility] Cardiology Visit Reporton Cardiology Visit Report [facility] [address] [place] [address]. [address] [place] [address] OFFICE VISIT Date of Service: 06/19/24 MR#: [id number] Acct: [id number] Name: JUNE SCHUMACHER Rep #: [id number] : 2000 Provider: ADONAY wiley Age/Sex: 23/F [place] [facility] [place] Status: Signed HPI HPI History of Present Illness Details: This is a 23 year old female who presents to the office for a cardiovascular follow-up visit. 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 The patient has recently spent 2 years taking care of her dad who from a stroke. This occurred in September and in October she was evaluated in the emergency department for palpitations and tachyarrhythmia. EKG at the time she was having palpitations showed a sinus tachycardia 123 bpm. As she was evaluated emergency department her heart rate slowed into the 80 bpm range. She has not had a recurrence of those palpitations since then she was placed on metoprolol 25 mg twice daily. The patient denies any history of diabetes hypertension or syncope. She denies any history of a drop-off in exercise tolerance. There is no family history of sudden cardiac there is a family history on her father side of significant atherosclerotic disease. The patient laboratory evaluation showed a TSH of 0.94 when she was in the emergency department her troponin was negative D-dimer was negative she did have a potassium of 3.3. Otherwise her labs were unremarkable. The patient wore a 48-hour Holter monitor during that time she did not have any palpitations dizziness. She had very rare PVCs and PACs average heart rate was 74 minimum heart rate 42 maximum heart rate was 171 in sinus tachycardia at 10 PM and at that time only reports that she complained of palpitations although she tells me she did not have any when she was wearing the monitor. She actually specifically said she did not have anything that reminded her of what she had when she went to the emergency department. From a cardiac standpoint, the patient is doing well. She denies any palpitations, chest pain, pressure or heaviness. She denies SOB, Orthopnea, and PND. She does not have bleeding issues; no blood in urine, stool or nosebleeds. She denies any decrease in energy level, myalgias, or claudication. She does not have edema, or sudden weight gain. She denies dizziness, lightheadedness, syncopal or near syncopal episodes, and headaches. Intake Vital Signs 12/09/23 09:26 06/19/24 09:00 Height 5 ft 5 in 5 ft 5 in Weight: 169 lb 170 lb BMI 28.1 28.3 BP 121/78 H 98/67 Blood Pressure Location Rt brachial Lt brachial Position Sitting Sitting Respiration 18 14 Pulse 117 H 64 Pulse Source Monitor Monitor Intake Visit Reasons: 6 M FU Press Helper Required: No Accompanied by: Self Is patient in pain?: No Allergies latex Allergy (Mild, Verified 06/19/24 09:09) itching cephalexin Allergy (Verified 06/19/24 09:09) Vomiting Latex, Natural Rubber Allergy (Verified 06/19/24 09:09) HIVES Medications ???Medication ???Instructions ???Recorded ???Confirmed ???Type desogestrel-e.estradi ol 0.15 1 tab PO DAILY #84 tabs 04/11/24 06/19/24 Rx mg-0.02 mg(21)/e.estrad 0.01 mg(5) tablet (Kariva (28)) Have you fallen in the past year?: No PFSH Medical History (Reviewed 06/19/24 @ 09:31 by Amee Vela [employer], FOOD ASSEMBLER [employer]-C) Right retinal detachment Anxiety and depression Palpitations Menorrhagia Acne Dysmenorrhea Surgical History (Reviewed 06/19/24 @ 09:31 by Amee Vela [employer]SEM[employer], FOOD ASSEMBLER [employer]-C) History of eye surgery Family History (Reviewed 06/19/24 @ 09:31 by Amee Vela [employer], FOOD ASSEMBLER [employer]-C) Father Myocardial infarction CVA (cerebral vascular accident) L side paralysis. Currently in [place] assisted living for rehab Diabetes Grandfather No problems noted. Mother Anxiety Father Hypertension Diabetes Heart disease Grandfather CAD (coronary artery disease) Social History (Reviewed 06/19/24 @ 09:31 by Amee Vela [employer]OD ASSEM[employer] K[employer], FOOD ASSEMBLER COMMISS[employer] KITCHEN-C) current occupational status: student current occupation: [employer] Smoking Status: Never smoker second hand exposure: No alcohol intake: never substance use type: does not use and marijuana caffeine: Yes Type: carbonated beverages what type of physical activity do you participate in: none seatbelt use: always additional social history: [employer] Works at [email or web address]. Moved back in with parents to help when dad comes home ROS Const Const: Negative for fatigue, weakness, headache(s), daytime sleepiness or difficulty sleeping ENT ENT: Negative for headache(s), dizziness or Nosebleed/epistaxis Cardio Chest Pain: No Palpitations: No Edema: None Resp Respiratory: Negative for SOB with activity, SOB at rest, SOB orthopnea SOB lying down or Cough (more content not included)... [facility] 36on 06-14-2024 36 That's fine, but yomi suarez need a FOOD [employer]SEM[employer]ER [employer] KITCHEN appt to establish [facility] 36 Patient would like t o switch her PCP to Dr. Mai. Due to her wanting a female dr. Please advise. [facility] Office Visiton 06-13-2024 Follow-up visit [id number] June Schumacher 2000 F Date Provider Department Center 06/13/2024 BERTHA BROWN [facility] Family History Problem Relation Age of Onset Anxiety disorder Mother High Blood Pressure Father Comments: alive Diabetes Father Heart disease Father No Known Problems Brother No Known Problems Brother No Known Problems Paternal Grandmother Comments: age 93 Coronary artery disease Paternal Grandfather Family Status - Relation Status Age at Mother Alive Father Alive Brother Alive Brother Alive Maternal Grandmother Alive Maternal Grandfather Alive Paternal Grandmother Paternal Grandfather Level of Service:93868 OR OFFICE/OUTPATIENT ESTABLISHED SF MDM 10 MIN Reason for Visit and Comments: Follow-up [702062] - On discontinuing medication Flu Vaccine [189] - Patient is agreeable to have flu vaccine in the office Normal [facility] Progress Noteon 06-13-2024 Progress Note - Chronic stable seems to be situational secondary to grieving status post her father passing in September. Due to counseling she is feeling much better and no longer wishes to be on medication I agree with her at this point time she will taper the Celexa down to 5 mg for the next 1 to 2 weeks and then stop it altogether report any issues or concerns back to the office. Normal [facility] Progress Note [facility] [address] [facility] [address] Dept: [phone] Dept Loc: [phone] Visit type: Established Patient Reason for Visit: Follow-up (On discontinuing medication) and Flu Vaccine (Patient is agreeable to have flu vaccine in the office /) Assessment and Plan 1. Anxiety Assessment & Plan: - Chronic stable seems to be situational secondary to grieving status post her father passing in September. Due to counseling she is feeling much better and no longer wishes to be on medication I agree with her at this point time she will taper the Celexa down to 5 mg for the next 1 to 2 weeks and then stop it altogether report any issues or concerns back to the office. 2. Need for vaccination - Flu vaccine (FLUZONE/FLULAVAL), trivalent, split virus (VFC product) Follow up in about 1 year (around 06/13/2025), or if symptoms worsen or fail to improve, for Next scheduled follow-up. 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 He abruptly earlier this year and she has been grieving. Patient was seen about in November and shared decision making with her and her mom is agreeable to start on medication. She has been reevaluated and had done well on the Celexa as she presents back to the office stating that she is feeling better would like to discuss options of coming off the medication. Finally released from core counseling, and will still meet every 2-3 months to work on personal growth. Finally moved out on own and celebrated 1 year marriage anniversary. Review of Systems Constitutional: Negative for chills and fever. HENT: Negative for congestion and sore throat. Respiratory: Negative for cough and shortness of breath. Cardiovascular: Negative for chest pain. Gastrointestinal: Negative for abdominal pain, diarrhea, nausea and vomiting. Genitourinary: Negative for difficulty urinating, dysuria, frequency and urgency. Musculoskeletal: Negative for back pain. Neurological: Negative for dizziness and light-headedness. All other systems reviewed and are negative. Allergies Allergen Reactions Cephalexin Nausea And Vomiting Latex Itching Other reaction(s): itching Outpatient Medications Prior to Visit Medication Sig Dispense Refill citalopram (CeleXA) 10 MG tablet Take 1 tablet (10 mg) by mouth daily. 90 tablet 0 metoprolol tartrate (Lopressor) 25 MG tablet Take 25 mg by mouth 2 times daily. Volnea 0.15-0.02/0.01 MG (03/01) tablet ondansetron (Zofran) 4 MG tablet Take 4 mg by mouth. (Patient not taking: Reported on 06/13/2024) No facility-administered medications prior to visit. 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 Sonja Devi CNP Social History Tobacco Use Smoking status: Never Smokeless tobacco: Never Substance Use Topics Alcohol use: Never Past Surgical History: Procedure Laterality Date RETINAL DETACHMENT SURGERY Right 01/2023 Family History Problem Relation Name Age of Onset Anxiety disorder Mother Emerita High Blood Pressure Father Natalio alive Diabetes Father Natalio Heart disease Father Natalio No Known Problems Brother 1/2 No Known Problems Brother 1/2 No Known Problems Paternal Grandmother age 93 Coronary artery disease Paternal Grandfather Objective BP 100/64 Pulse 84 Temp 36.9 ?C (98.4 ?F) (Temporal) Ht 5' 5" (1.651 m) Wt 171 lb 6.4 oz (77.7 kg) SpO2 100% BMI 28.52 kg/m? Physical Exam Vitals reviewed. Constitutional: General: She is not in acute distress. Appearance: Normal appearance. She is not ill-appearing or toxic-appearing. HENT: Right Ear: Tympanic membrane and ear canal normal. Left Ear: Tympanic membrane and ear canal normal. Mouth/Throat: Mouth: Mucous membranes are moist. Pharynx: No oropharyngeal exudate or posterior oropharyngeal erythema. Eyes: General: No scleral icterus. Conjunctiva/sclera: Conjunctivae normal. Pupils: Pupils are equal, round, and reactive to light. Cardiovascular: Rate and Rhythm: Normal rate and regular rhythm. Heart sounds: Normal heart sounds. No murmur heard. Pulmonary: Effort: Pulmonary effort is normal. No respiratory distress. Breath sounds: Normal breath sounds. Abdominal: General: Bowel sounds are normal. There is no distension. Palpations: Abdomen is soft. Tenderness: There is no abdominal tenderness. There is no guarding. Musculoskeletal: Cervical back: Normal range of motion and neck supple. Right lower leg: No edema. Left lower leg: No edema. Skin: General: Skin is warm and dry. Neurolo (more content not included)... Normal [facility] Potassiumon 02-12-2023 Potassium [Moles/Vol] 4.1 mmol/L 3.5 - 5.1 mmol/L [facility] Potassium [Moles/Vol]on 01-16 Interpretation and review of laboratory results Normal [facility] CR Chest PA/LATon 05-26-2019 CR Chest PA/LAT Patient Name: JUNE ALBERT Diagnostic Radiology Exam Date/Time 05/26/2019 12:24:34 EDT Exam CR Chest PA/LAT Ordering Physician DO ROACH EUGENE F. Accession Number [id number] CPT4 Codes 20953 () Reason For Exam cough Report Chest: PA and lateral 05/26/2019. Clinical Information: Cough. Findings: PA and lateral views of the chest reveal the trachea, heart and mediastinal structures to be unremarkable. No focal areas of consolidation or volume loss are seen. There are no pleural effusions. The pulmonary vasculature does not appear congested. The visualized bony structures are intact. No prior studies for comparison. Impression: No acute process. Report Dictated on Workstation: [facility] Final Dictating Physician: MD IVORY RISA Signed Date and Time: 05/26/2019 12:30 pm Signed by: MD IVORY RISA Transcribed Date and Time: 05/26/2019 12:31 Normal [facility] XR CHEST STANDARD (2 VW)on Patient Name: JUNE ALBERT ---Diagnostic Radiology--- Exam Date/Time 05/26/2019 12:24:34 EDT Exam CR Chest PA/LAT Ordering Physician DO ROACH EUGENE F. Accession Number [id number] CPT4 Codes 40114 () Reason For Exam cough Report Chest: PA and lateral 05/26/2019. Clinical Information: Cough. Findings: PA and lateral views of the chest reveal the trachea, heart and mediastinal structures to be unremarkable. No focal areas of consolidation or volume loss are seen. There are no pleural effusions. The pulmonary vasculature does not appear congested. The visualized bony structures are intact. No prior studies for comparison. Impression: No acute process. Report Dictated on --- Final --- Dictating Physician: MD IVORY RISA Signed Date and Time: 05/26/2019 12:30 pm Signed by: MD IVORY RISA Transcribed Date and Time: 05/26/2019 12:31 [place], [place] Elly, [facility] Incoming Radiology Results From [facility] - 05/26/2019 12:32 PM EDT Patient Name: JUNE ALBERT ---Diagnostic Radiology--- Exam Date/Time 05/26/2019 12:24:34 EDT Exam CR Chest PA/LAT Ordering Physician DO ROACH EUGENE F. Accession Number [id number] CPT4 Codes 84737 () Reason For Exam cough Report Chest: PA and lateral 05/26/2019. Clinical Information: Cough. Findings: PA and lateral views of the chest reveal the trachea, heart and mediastinal structures to be unremarkable. No focal areas of consolidation or volume loss are seen. There are no pleural effusions. The pulmonary vasculature does not appear congested. The visualized bony structures are intact. No prior studies for comparison. Impression: No acute process. Report Dictated on --- Final --- Dictating Physician: MD IVORY RISA Signed Date and Time: 05/26/2019 12:30 pm Signed by: MD IVORY RISA Transcribed Date and Time: 05/26/2019 12:31 [facility] [place] Vital Signs Date Time Vital Sign Value Performing Clinician Facility 02-13-2025 08:03-0400 Body height 165.1 cm Loreta Mai DO Work Phone: [facility] 02-13-2025 08:03-0400 Body mass index (BMI) [Ratio] 29.12 kg/m2 Loreta Mai DO Work Phone: [facility] 02-13-2025 08:03-0400 Body temperature 98.29 [degF] Loreta Mai DO Work Phone: [facility] 02-13-2025 08:03-0400 Body weight 79.38 kg Loreta Mai DO Work Phone: [facility] 02-13-2025 08:03-0400 Diastolic blood pressure 68 mm[Hg] Loreta Mai DO Work Phone: [facility] 02-13-2025 08:03-0400 Heart rate 85 /min Loreta Mai DO Work Phone: [facility] 02-13-2025 08:03-0400 SaO2% (BldA) [Mass fraction] 98 % Loreta Mai DO Work Phone: [facility] 02-13-2025 08:03-0400 Systolic blood pressure 105 mm[Hg] Loreta Mai DO Work Phone: [facility] 01-15-2025 06:36-0400 Body height 165.[address] José Manuel Roach DO Work Phone: [facility] 01-15-2025 06:36-0400 Body mass index (BMI) [Ratio] 29.1 kg/m2 Dr. José Manuel Roach DO Work Phone: [facility] 01-15-2025 06:36-0400 Body weight 79.[address] José Manuel Roach DO Work Phone: [facility] 01-15-2025 06:36-0400 Diastolic blood pressure 85 mm[Hg] Dr. José Manuel Roach DO Work Phone: [facility] 01-15-2025 06:36-0400 Heart rate 95 /min Dr. José Manuel Roach DO Work Phone: [facility] 01-15-2025 06:36-0400 Respiratory rate 18 /min Dr. José Manuel Roach DO Work Phone: [facility] 01-15-2025 06:36-0400 SaO2% (BldA) [Mass fraction] 98 % Dr. José Manuel Roach DO Work Phone: [facility] 01-15-2025 06:36-0400 Systolic blood pressure 125 mm[Hg] Dr. José Manuel Roach DO Work Phone: [facility] 06-13-2024 14:56-0400 Body height 165.1 cm Bertha Goldsteino PA-C Work Phone: [facility] 06-13-2024 14:56-0400 Body mass index (BMI) [Ratio] 28.52 kg/m2 Bertha Magaña PA-C Work Phone: [facility] 06-13-2024 14:56-0400 Body temperature 98.4 [degF] Bertha Goldsteino PA-C Work Phone: [facility] 06-13-2024 14:56-0400 Body weight 77.75 kg Bertha Magaña PA-C Work Phone: [facility] 06-13-2024 14:56-0400 Diastolic blood pressure 64 mm[Hg] Bertha Goldsteino PA-C Work Phone: [facility] 06-13-2024 14:56-0400 Heart rate 84 /min Bertha Magaña PA-C Work Phone: [facility] 06-13-2024 14:56-0400 SaO2% (BldA) [Mass fraction] 100 % Bertha Goldsteino PA-C Work Phone: [facility] 06-13-2024 14:56-0400 Systolic blood pressure 100 mm[Hg] Bertha Magaña PA-C Work Phone: [facility] 12-14-2023 14:40-0400 Body height 165.1 cm Bertha Magaña PA-C Work Phone: [facility] 12-14-2023 14:40-0400 Body mass index (BMI) [Ratio] 27.96 kg/m2 Bertha Magaña PA-C Work Phone: [facility] 12-14-2023 14:40-0400 Body weight 76.2 kg Bertha Magaña PA-C Work Phone: [facility] 12-14-2023 14:40-0400 Diastolic blood pressure 74 mm[Hg] Bertha Magaña PA-C Work Phone: [facility] 12-14-2023 14:40-0400 Heart rate 70 /min Bertha Magaña PA-C Work Phone: [facility] 12-14-2023 14:40-0400 SaO2% (BldA) [Mass fraction] 100 % Bertha Magaña PA-C Work Phone: [facility] 12-14-2023 14:40-0400 Systolic blood pressure 120 mm[Hg] Bertha Magaña PA-C Work Phone: [facility] 03-29-2023 08:59-0400 Body height 165.1 cm Bertha Magaña PA-C Work Phone: [facility] 03-29-2023 08:59-0400 Body mass index (BMI) [Ratio] 31.12 kg/m2 Bertha Magaña PA-C Work Phone: [facility] 03-29-2023 08:59-0400 Body temperature 97.7 [degF] Bertha Magaña PA-C Work Phone: [facility] 03-29-2023 08:59-0400 Body weight 84.82 kg Bertha Magaña PA-C Work Phone: [facility] 03-29-2023 08:59-0400 Diastolic blood pressure 68 mm[Hg] Bertha Magaña PA-C Work Phone: [facility] 03-29-2023 08:59-0400 Heart rate 76 /min Bertha Magaña PA-C Work Phone: [facility] 03-29-2023 08:59-0400 SaO2% (BldA) [Mass fraction] 98 % Bertha Magaña PA-C Work Phone: [facility] 03-29-2023 08:59-0400 Systolic blood pressure 111 mm[Hg] Bertha Magaña PA-C Work Phone: [facility] 11-23-2022 08:47-0400 Diastolic blood pressure 82 mm[Hg] Bertha Magaña PA-C Work Phone: [facility] 11-23-2022 08:47-0400 Systolic blood pressure 108 mm[Hg] Bertha Magaña PA-C Work Phone: [facility] 11-23-2022 08:24-0400 Body height 165.1 cm Bertha Magaña PA-C Work Phone: [facility] 11-23-2022 08:24-0400 Body mass index (BMI) [Ratio] 32.62 kg/m2 Bertha Magaña PA-C Work Phone: [facility] 11-23-2022 08:24-0400 Body temperature 97.7 [degF] Bertha Magaña PA-C Work Phone: [facility] 11-23-2022 08:24-0400 Body weight 88.91 kg Bertha Magaña PA-C Work Phone: [facility] 11-23-2022 08:24-0400 Heart rate 79 /min Bertha Magaña PA-C Work Phone: [facility] 11-23-2022 08:24-0400 SaO2% (BldA) [Mass fraction] 96 % Bertha Magaña PA-C Work Phone: [facility] 10-01-2022 12:49-0500 Body height 165.1 cm José Manuel Roach DO Work Phone: [facility] 10-01-2022 12:49-0500 Body mass index (BMI) [Ratio] 32.28 kg/m2 José Manuel Roach DO Work Phone: [facility] 10-01-2022 12:49-0500 Body temperature 97.81 [degF] José Manuel Roach DO Work Phone: [facility] 10-01-2022 12:49-0500 Body weight 88 kg José Manuel Roach DO Work Phone: [facility] 10-01-2022 12:49-0500 Diastolic blood pressure 76 mm[Hg] José Manuel Roach DO Work Phone: [facility] 10-01-2022 12:49-0500 Heart rate 69 /min José Manuel Roach DO Work Phone: [facility] 10-01-2022 12:49-0500 SaO2% (BldA) [Mass fraction] 98 % José Mnauel Roach DO Work Phone: [facility] 10-01-2022 12:49-0500 Systolic blood pressure 120 mm[Hg] José Manuel Roach DO Work Phone: [facility] 04-21-2022 14:12-0400 Body height 165.[address] Gigi Tamayo Work Phone: [facility] Work Phone: 04-21-2022 14:11-0400 Body mass index (BMI) [Ratio] 34.4 kg/m2 Dr. Gigi Tamayo Work Phone: [facility] Work Phone: 04-21-2022 14:11-0400 Body weight 93.[address] Gigi Tamayo Work Phone: [facility] Work Phone: 04-21-2022 14:11-0400 Diastolic blood pressure 74 mm[Hg] Dr. Gigi Tamayo Work Phone: [facility] Work Phone: 04-21-2022 14: Systolic blood pressure 126 mm[Hg] Dr. Gigi Tamayo Work Phone: [facility] Work Phone: Encounters Encounter Date Encounter Type Care Provider Facility Start: 02-13-2025 End: 02-13-2025 Office outpatient visit 15 minutes Loreta Mai DO Work Phone: [facility] [place] Comment on above: Major depressive dis order with single episode, in full remission (HCC) Start: 02-13-2025 End: 02-13-2025 ambulatory LORETA MAI [facility] Start: 01-15-2025 End: 01-15-2025 Patient encounter procedure Amee Vela NP-C [facility] Work Phone: Start: 01-15-2025 End: 01-15-[address] José Manuel Roach DO Work Phone: [facility] Work Phone: Start: 01-01-2025 End: 02-07-2025 Telephone encounter José Manuel Roach DO Work Phone: [facility] [place] Comment on above: Other (Would like to see Dr. Mai as PCP, she would like a female provider) Start: 06-20-2024 End: 06-20-2024 ambulatory Belem Lieberman [employer] Facility:[facility] Start: 06-19-2024 End: 06-19-2024 ambulatory Amee Vela NP Facility:[facility] Start: 06-13-2024 End: 06-13-2024 Office outpatient visit 10 minutes Bertha Magaña PA-C Work Phone: [facility] [place] Comment on above: Anxiety (Primary Dx) ; Need for vaccination Start: 06-13-2024 End: 06-13-2024 ambulatory BERTHA MAGAÑA [facility] Start: 02-08-2024 ambulatory José Manuel Roach Facilit y:[facility] Start: 01-03-2024 Refill Bertha Khan Work Phone: [facility] Comment on above: Grief reaction Start: 12-14-2023 End: 12-14-2023 Office outpatient visit 15 minutes Bertha Magaña PA-C Work Phone: [facility] Comment on above: Palpitations (Primar y Dx); Grief reaction Start: 12-14-2023 End: 12-14-2023 Office outpatient visit 25 minutes Bertha Magaña PA-C Work Phone: [facility] Comment on above: Palpitations (Primar y Dx); Grief reaction Start: 11-15-2023 End: 11-15-2023 Office outpatient visit 25 minutes Bertha Magaña PA-C Work Phone: [facility] Comment on above: Grief reaction (Prim lisa Dx); Skin abrasion; Hypokalemia; Tachycardia Start: 11-11-2023 End: 11-11-2023 ambulatory [facility] Work Phone: Start: 11-11-2023 End: 11-11-2023 Patient encounter procedure [facility] Work Phone: Start: 03-29-2023 End: 03-29-2023 Office outpatient visit 10 minutes Bertha Magaña PA-C Work Phone: [facility] Comment on above: Anxiety and depressi on (Primary Dx); Right retinal detachment Start: 02-12-2023 End: 02-12-2023 ambulatory Suki Iglesias [employer] Work Phone: [facility] Comment on above: Arrived Acne vulgaris (Prima ry Dx) Start: 11-23-2022 End: 11-23-2022 Office outpatient visit 15 minutes Bertha Magaña PA-C Work Phone: [facility] Comment on above: Other fatigue (Prima ry Dx); Weight loss Start: 10-01-2022 End: 10-01-2022 Office outpatient visit 15 minutes José Manuel Roach DO Work Phone: [facility] Comment on above: Anxiety and depressi on (Primary Dx) Start: 09-07-2022 Refill Gigi goncalves DO Work Phone: [facility] Start: 04-21-2022 End: 04-21-[address] Gigi Tamayo Work Phone: [facility] Work Phone: Start: 04-21-2022 End: 04-21-[address] Gigi Tamayo Work Phone: [facility]Laboratory, Specimen Start: 04-21-2022 End: 04-21-[address] Gigi Tamayo Work Phone: [facility] Start: 05-26-2019 End: 05-26-2019 Subsequent hospital visit by physician José Manuel Roach Work Phone: [facility] Comment on above: Cough Procedures Date Procedure Procedure Detail Performing Clinician Start: 02-12-2023 Potassium serum plasma/whole blood Suki Iglesias [employer] Work Phone: Start: 05-26-2019 Radiologic exam ches t 2 views José Manuel Roach Work Phone: Plan of Treatment Date Care Activity Detail Author Start: 2075 RSV Immunization for Adults (1 - 1-dose 75+ series) RSV Immunization for Adults (1 - 1-dose 75+ series) [facility] Start: 2060 RSV Immunization age d 60 or older (1 - 1-dose 60+ series) RSV Immunization aged 60 or older (1 - 1-dose 60+ series) [facility] Start: 2050 Zoster Vaccines (1 of 2) Zoster Vacc marie (1 of 2) [facility] Start: 02-14-2026 End: 02-14-2026 Patient encounter procedure 02/14/2026 3:00 PM EDT Office Visit [facility] [address] [place] [id number] Loreta Mai, [address] [place], [place] [address] [facility] Start: 08-14-2025 Depression Monitoring Depression Mon [facility] Start: 06-14-2025 End: 06-14-2025 Patient encounter procedure 06/14/2025 1:40 PM EDT Office Visit [facility] [address] [place] [address] Loreta Mai DO [address] [place] [address] Road [address] [place], [place] [address] [facility] Start: 04-16-2025 Influenza vaccination Influenza Vacc ine (#1) [facility] Start: 02-13-2025 End: 02-13-2025 Patient encounter procedure 02/13/2025 8:00 AM EDT Office Visit [facility] [address] [place] [phone] Loreta Mai, [address] [place] [address] [address] [place], [place] [id number] [facility] Start: 12-09-2024 Depression Monitoring Depression Mon [facility] Start: 05-30-2024 End: 05-30-2024 Patient encounter procedure 05/30/2024 2:00 PM EDT Office Visit [address] [place] [address] José Manuel Roach DO [address] [place] [address] [place] [address] [facility] Start: 04-16-2024 COVID-19 Vaccine ( season) COVID-19 Vaccine () [facility] Start: 04-16-2024 Influenza vaccination Influenz a Vaccine (Season Ended) [facility] Start: 03-30-2024 End: 03-30-2024 Patient encounter procedure [facility] Start: 12-14-2023 End: 12-14-2023 Patient encounter procedure 12/14/2023 2:40 PM EDT Office Visit [facility] [address] [place] [address] Bertha Magaña PA-C [address] [place] [address] [facility] Start: 04-16-2023 COVID-19 Vaccine ( season) COVID-19 Vaccine () [facility] Start: 04-16-2023 Influenza vaccination [facility] Start: 03-29-2023 End: 03-29-2023 Patient encounter procedure [facility] Start: 11-23-2022 End: 11-24-2023 CBC W Auto Differential panel - Blood CBC auto differential Lab Routine Other fatigue Weight loss Expected: 11/23/2022 (Approximate), Expires: 11/24/2023 [facility] Work Phone: Comment on above: Expected: 11/23/2022 (Approximate), Expires: 11/24/2023 Start: 11-23-2022 End: 11-24-2023 Comprehensive metabolic 1998 panel - Serum or Plasma Comprehensive metabolic panel Lab Routine Other fatigue Weight loss Expected: 11/23/2022 (Approximate), Expires: 11/24/2023 [facility] Comment on above: Expected: 11/23/2022 (Approximate), Expires: 11/24/2023 Start: 11-23-2022 End: 11-24-2023 Iron and Iron binding capacity panel - Serum or Plasma Iron and TIBC Lab Routine Other fatigue Weight loss Expected: 11/23/2022 (Approximate), Expires: 11/24/2023 [facility] Comment on above: Expected: 11/23/2022 (Approximate), Expires: 11/24/2023 Start: 11-23-2022 End: 11-24-2023 Thyrotropin [Units/volume] in Serum or Plasma TSH Lab Routine Other fatigue Weight loss Expected: 11/23/2022 (Approximate), Expires: 11/24/2023 [facility] Comment on above: Expected: 11/23/2022 (Approximate), Expires: 11/24/2023 Start: 10-01-2022 End: 10-01-2022 Patient encounter procedure 10/01/2022 Office Visit Family Medicine José Manuel Roach, DO [address], [place] [id number] [facility] Start: 04-21-2022 Liquid based cervica l cytology screening [facility] Work Phone: Start: 04-16-2022 Influenza vaccination Influenza Vacc ine (#1) [facility] Start: 08-20-2021 COVID-19 Vaccine (4 - Booster for Pfizer series) COVID-19 Vaccine (4 - Booster for Pfizer series) [facility] Start: 08-20-2021 COVID-19 Vaccine (4 - Pfizer series) COVID-19 Vaccine (4 - Pfizer series) [facility] Start: 2021 Screening for malign ant neoplasm of cervix Pap Smear [facility] Start: 2019 DTaP/Tdap/Td Vaccine s (1 - Tdap) DTaP/Tdap/Td Vaccines (1 - Tdap) [facility] Start: 2019 Hepatitis B Vaccines (1 of 3 - 19+ 3-dose series) Hepatitis B Vaccines (1 of 3 - 19+ 3-dose series) [facility] Start: 04-16-2019 Influenza vaccination Flu vaccine (# 1) [place], [place] Start: 2018 Diabetes mellitus screening Diabetes Screening [facility] Start: 2018 Hepatitis C screening Hepatitis C Sc reening [facility] Start: 2016 Chlamydia screen Chlamydia screen [place], [place] Start: 2016 Meningococcal (ACWY) Vaccine (1 - 2-dose series) Meningococcal (ACWY) Vaccine (1 - 2-dose series) [place], [place] Start: 2015 HIV screen HIV screen [place], [place] Start: 2015 HPV vaccine (1 - Fem layne 3-dose series) HPV vaccine (1 - Female 3-dose series) [place], [place] Start: 2015 HPV Vaccines (1 - 3- dose series) HPV Vaccines (1 - 3-dose series) [facility] Start: 12-29-2013 MMR Vaccines (1 of 1 - Standard series) MMR Vaccines (1 of 1 - Standard series) [facility] Start: 12-29-2013 Varicella vaccination Varicell a Vaccines (2 of 2 - 13+ 2-dose series) [facility] Start: 2013 Varicella Vaccine (1 of 2 - 13+ 2-dose series) Varicella Vaccine (1 of 2 - 13+ 2-dose series) [place], [place] Start: 2012 Depression Monitoring Depression Mon itoring [facility] Start: 2012 Depresssion Monitoring Depresssion M onitoring [facility] Start: 2011 HPV Vaccines (1 - 2- dose series) HPV Vaccines (1 - 2-dose series) [facility] Start: 2007 DTaP/Tdap/Td vaccine (1 - Tdap) DTaP/Tdap/Td vaccine (1 - Tdap) [place], [place] Start: 2001 Hepatitis A vaccine (1 of 2 - 2-dose series) Hepatitis A vaccine (1 of 2 - 2-dose series) [place], [place] Start: 2001 Measles,Mumps,Rubell a (MMR) vaccine (1 of 2 - Standard series) Measles,Mumps,Rubella (MMR) vaccine (1 of 2 - Standard series) [place], [place] Start: 2000 Hepatitis B Vaccine (1 of 3 - 3-dose primary series) Hepatitis B Vaccine (1 of 3 - 3-dose primary series) [place] Start: 2000 Hepatitis B Vaccines (1 of 3 - 3-dose series) Hepatitis B Vaccines (1 of 3 - 3-dose series) [facility] Start: 2000 HIV screening HIV Screening [facility] OUTSIDE PROCEDURE SCAN OUTSIDE P ROCEDURE SCAN Procedures Ordered: 02/12/2023 [facility] Comment on above: Ordered: 02/12/2023 Path report.final Dx Spec [facility] Work Phone: Immunizations Immunization Date Immunization Notes Care Provider Scot head 06-13-2024 influenza, seasonal, injectable, preservative free Bertha Magaña PA-C Work Phone: [facility] 06-13-2024 influenza virus vacc ine, unspecified formulation Loreta Mai DO Work Phone: [facility] 08-19-2021 influenza, injectabl e, quadrivalent, preservative free Gigi Lalosacha DO Work Phone: [facility] 08-19-2021 influenza virus vacc ine, unspecified formulation Gigi Maysacha DO Work Phone: [facility] 06-25-2021 Pfizer SARS-CoV-2 Vaccination Gigi Maysacha DO Work Phone: [facility] 12-05-2020 Pfizer SARS-CoV-2 Vaccination Gigi Tamayo DO Work Phone: [facility] 04-29-2020 influenza, injectabl e, quadrivalent, preservative free Gigi Tamayo DO Work Phone: [facility] 10-06-2019 Influenza, injectabl e, [place]in [place] Canine Kidney, preservative free, quadrivalent Gigi Lalosacha DO Work Phone: [facility] 12-01-2013 varicella virus vaccine Gigi Belkis DO Work Phone: [facility] 08-22-2009 novel influenza-H1N1 -09, preservative-free, injectable Bertha Magaña PA-C Work Phone: [facility] 07-04-2009 novel influenza-H1N1 -09, preservative-free, injectable Bertha Magaña PA-C Work Phone: [facility] Payers Date Payer Category Payer Self-pay [id number] 2023 Unknown [employer] [id number] 2023-Present [address] [place] [address] Commercial [id number] 2023 Blue Cross Blue Shie ld Managed Care - O [id number] 2023 Unknown [id number] 2018 Unknown [facility] [id number] 2018-Present [address] [place] [address] xxxxxxxx [id number] 2016 Private Health Insurance [facility] UMR OPT [id number] 2016-Present [address] [address] [place] [address] Commercial [id number] Unknown ANTHEM [id number] Unknown [facility] ELLY [id number] Unknown [id number] Unknown [id number] Unknown [id number] Unknown [id number] Social History Date Type Detail Facility Start: 05-26-2019 End: 12-09-2023 Tobacco smoking status NHIS Never smoker [facility] [employer] Work Phone: Start: 05-26-2019 End: 02-12-2025 Alcohol intake Never [facility] Start: 05-24-2019 History SDOH [facility] Frequency [facility] Start: 2000 Sex Assigned At Not on file [facility] Start: 04-21-2022 End: 06-15-2023 Tobacco smoking status NHIS Unknown if ever smoked [facility] Start: 2000 Sex Assigned At Female [facility] Start: 11-23-2022 End: 02-13-2025 Alcohol intake Lifetime non-drinker (finding) [facility] Start: 09-21-2022 End: 03-29-2023 Exposure to SARS-CoV-2 (event) Not sure [facility] Start: 11-23-2022 End: 02-12-2025 History of Social function [facility] Start: 09-24-2022 Gender identity Identifies as female gender (finding) [facility] Start: 09-24-2022 Sexual orientation Heterosexual (fin ding) [facility] Start: 03-16-2022 Sex Female (finding) [facility] How often do you nee d to have someone help you when you read instructions, pamphlets, or other written material from your doctor or pharmacy [SILS] Never [facility] Has the [employer], [employer], [employer], or water [employer] threatened to shut off services in your home in past 12Mo No [facility] Are you now , , , , never or living with a partner? [facility] How often to you hav e a drink containing alcohol? Monthly or less [facility] How many standard drinks containing alcohol do you have on a typical day? 1 or 2 [facility] How hard is it for y ou to pay for the very basics like food, housing, medical care, and heating Not hard at all [facility] Do you feel stress - tense, restless, nervous, or anxious, or unable to sleep at night because your mind is troubled all the time - these days [OSQ] To some extent [facility] (I/We) worried paras er (my/our) food would run out before (I/we) got money to buy more. Never true [facility] Clinical Notes 09-07-2022 to 02-13-2025 Loreta Mai DO - 02/13/2025 8:00 AM EDTTelephone Encounter - Glenda Del Real, LYN - 01/01/2025 11:54 AM EDTTelephone Encounter - Glenda Del RealLYN - 01/01/2025 11:54 AM EDT Note Date & Type Note Facility 02-13-2025 History of Presen t illness Narrative Images from the original note were not included. [facility] - [address] [facility] [address] Visit type: Established Patient Reason for Visit: Establish Care Assessment and Plan Diagnoses and all orders for this visit: Major depressive disorder with single episode, in full remission (HCC) - citalopram (CeleXA) 10 MG tablet; Take 1 tablet (10 mg) by mouth daily. Chronic, stable, continue current management plan with celexa and therapy Follow up in 1 year No follow-ups on file. Subjective HPI Started celexa after the of her father. She tried to go off of it in May and didn't do well. 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 HENT: Negative for congestion, ear pain, hearing loss, postnasal drip, sore throat and trouble swallowing. Eyes: Negative for discharge, itching and visual disturbance. Respiratory: Negative for cough, shortness of breath and wheezing. Cardiovascular: Negative for chest pain, palpitations and leg swelling. Gastrointestinal: Negative for abdominal pain, constipation, diarrhea, nausea and vomiting. Endocrine: Negative for cold intolerance, heat intolerance, polydipsia, polyphagia and polyuria. Genitourinary: Negative for difficulty urinating, frequency, urgency, vaginal bleeding, vaginal discharge and vaginal pain. Musculoskeletal: Negative for arthralgias, back pain, joint swelling and myalgias. Skin: Negative for color change, rash and wound. Neurological: Negative for dizziness, tremors, seizures, speech difficulty, weakness, numbness and headaches. Hematological: Negative for adenopathy. Does not bruise/bleed easily. Psychiatric/Behavioral: Negative for agitation, decreased concentration, dysphoric mood and sleep disturbance. The patient is not nervous/anxious. Allergies[1] Current Medications[2] Medical History[3] Social History[4] Surgical History[5] Surgical History[6] Family History[7] Objective BP 105/68 Pulse 85 Temp 36.8 C (98.3 F) Ht 5' 5" (1.651 m) Wt 175 lb (79.4 kg) SpO2 98% BMI 29.12 kg/m Physical Exam Vitals and nursing note reviewed. Constitutional: General: She is not in acute distress. Appearance: Normal appearance. She is not ill-appearing. HENT: Head: Normocephalic and atraumatic. Eyes: Conjunctiva/sclera: Conjunctivae normal. Cardiovascular: Rate and Rhythm: Normal rate and regular rhythm. Pulses: Normal pulses. Heart sounds: Normal heart sounds. No murmur heard. No gallop. Pulmonary: Effort: Pulmonary effort is normal. No respiratory distress. Breath sounds: Normal breath sounds. No stridor. No wheezing, rhonchi or rales. Chest: Chest wall: No tenderness. Musculoskeletal: Cervical back: Neck supple. Right lower leg: No edema. Left lower leg: No edema. Neurological: General: No focal deficit present. Mental Status: She is alert and oriented to person, place, and time. Psychiatric: Mood and Affect: Mood normal. Behavior: Behavior normal. Thought Content: Thought content normal. Judgment: Judgment normal. Data Reviewed POCT: Labs: Imaging/Testing: Chart Clean Up: Medications Discontinued During This Encounter Medication Reason metoprolol tartrate (Lopressor) 25 MG tablet Therapy completed citalopram (CeleXA) 10 MG tablet Reorder Loreta Mai DO 02/13/2025 8:42 AM [1] Allergies Allergen Reactions Cephalexin Nausea And Vomiting Latex Itching Other reaction(s): itching [2] Current Outpatient Medications: Volnea 0.15-0.02/0.01 MG (21/5) tablet, , Disp: , Rfl: citalopram (CeleXA) 10 MG tablet, Take 1 tablet (10 mg) by mouth daily., Disp: 90 tablet, Rfl: 3 [3] Past Medical History: Diagnosis Date Anxiety and depression 2016 Family history of diabetes mellitus in father Retinal detachment of right eye due to tear of retina 01/2023 Uses oral contraception 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, Social Drivers of Health Financial Resource Strain: Low Risk (02/12/2025) Overall Financial Resource Strain (CARDIA) Difficulty of Paying Living Expenses: Not hard at all Food Insecurity: No Food Insecurity (02/12/2025) Hunger Vital Sign Worried About Running Out of Food in the Last Year: Never true Ran Out of Food in the Last Year: Never true Transportation Needs: No Transportation Needs (02/12/2025) PRAPARE - Transportation Lack of Transportation (Medical): No Lack of Transportation (Non-Medical): No Physical Activity: Insufficiently Active (02/12/2025) Exercise Vital Sign Days of Exercise per Week: 3 days Minutes of Exercise per Session: 20 min Stress: Stress Concern Present (02/12/2025) [place] [employer] - Occupational Stress Questionnaire Feeling of Stress : To some extent Social Connections: Moderately Integrated (02/12/2025) Social Connection and Isolation Panel [NHANES] Frequency of Communication with Friends and Family: More than three times a week Frequency of Social Gatherings with Friends and Family: Three times a week Attends Jewish Services: More than 4 times per year Active Member of Clubs or Organizations: No Attends Club or Organization Meetings: Never Marital Status: Intimate Partner Violence: Not At Risk (02/12/2025) Humiliation, Afraid, Rape, and Kick questionnaire Fear of Current or Ex-Partner: No Emotionally Abused: No Physically Abused: No Sexually Abused: No Housing Stability: Low Risk (02/12/2025) Housing Stability Vital Sign Unable to Pay for Housing in the Last Year: No Number of Times Moved in the Last Year: 1 Homeless in the Last Year: No [5] Past Surgical History: Procedure Laterality Date RETINAL DETACHMENT SURGERY Right 01/2023 [6] Past Surgical History: Procedure Laterality Date RETINAL DETACHMENT SURGERY Right 01/2023 [7] Family History Problem Relation Name Age of Onset Anxiety disorder Mother Emerita High Blood Pressure Father Natalio alive Diabetes Father Natalio Heart disease Father Natalio No Known Problems Brother 1/2 No Known Problems Brother 1/2 No Known Problems Paternal Grandmother age 93 Coronary artery disease Paternal Grandfather documented in this encounter [facility] 01-01-2025 Telephone encounter Note Appt scheduled - patient aware that any issues that may happen before February 13 will need to be addressed with Dr. Roach [facility] 01-01-2025 Miscellaneous Notes Appt scheduled - patient aware that any issues that may happen before February 13 will need to be addressed with Dr. Roach That's fine, but will need to be NTP in first avail Name of caller: June Contact phone number: [phone] Relationship to Patient: patient Provider: Dr. Roach Practice: [facility] Chief Complaint/Reason for Call: Patient would like to see Dr. Mai as PCP, she wants a female provider if possible. Please send a note in MY chart and alayna her an appointment with Dr. Mai. Thank you Best time of day caller can be reached: any Patient advised that office/PCP has 24-48 business hours to return their call: Yes documented in this encounter [facility] 01-01-2025 Telephone encounter Note That's fine, but will need to be NTP in first avail [facility] [employer] Work Phone: 01-01-2025 Telephone encounter Note Name of caller: June Contact phone number: [phone] Relationship to Patient: patient Provider: Dr. Roach Practice: [facility] Chief Complaint/Reason for Call: Patient would like to see Dr. Mai as PCP, she wants a female provider if possible. Please send a note in MY chart and alayna her an appointment with Dr. Mai. Thank you Best time of day caller can be reached: any Patient advised that office/PCP has 24-48 business hours to return their call: Yes [facility] [employer] 06-13-2024 Evaluation + Plan note Associated Problem(s): Anxiety - Chronic stable seems to be situational secondary to grieving status post her father passing in September. Due to counseling she is feeling much better and no longer wishes to be on medication I agree with her at this point time she will taper the Celexa down to 5 mg for the next 1 to 2 weeks and then stop it altogether report any issues or concerns back to the office. [facility] [employer] 06-13-2024 Miscellaneous Notes Associated Problem(s): Anxiety - Chronic stable seems to be situational secondary to grieving status post her father passing in September. Due to counseling she is feeling much better and no longer wishes to be on medication I agree with her at this point time she will taper the Celexa down to 5 mg for the next 1 to 2 weeks and then stop it altogether report any issues or concerns back to the office. documented in this encounter [facility] [employer] 06-13-2024 History of Presen t illness Narrative Images from the original note were not included. [facility] [address] [facility] [address] Dept: [phone] Dept Loc: [phone] Visit type: Established Patient Reason for Visit: Follow-up (On discontinuing medication) and Flu Vaccine (Patient is agreeable to have flu vaccine in the office /) Assessment and Plan 1. Anxiety Assessment & Plan: - Chronic stable seems to be situational secondary to grieving status post her father passing in September. Due to counseling she is feeling much better and no longer wishes to be on medication I agree with her at this point time she will taper the Celexa down to 5 mg for the next 1 to 2 weeks and then stop it altogether report any issues or concerns back to the office. 2. Need for vaccination - Flu vaccine (FLUZONE/FLULAVAL), trivalent, split virus (VFC product) Follow up in about 1 year (around 06/13/2025), or if symptoms worsen or fail to improve, for Next scheduled follow-up. 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 He abruptly earlier this year and she has been grieving. Patient was seen about in November and shared decision making with her and her mom is agreeable to start on medication. She has been reevaluated and had done well on the Celexa as she presents back to the office stating that she is feeling better would like to discuss options of coming off the medication. Finally released from core counseling, and will still meet every 2-3 months to work on personal growth. Finally moved out on own and celebrated 1 year marriage anniversary. Review of Systems Constitutional: Negative for chills and fever. HENT: Negative for congestion and sore throat. Respiratory: Negative for cough and shortness of breath. Cardiovascular: Negative for chest pain. Gastrointestinal: Negative for abdominal pain, diarrhea, nausea and vomiting. Genitourinary: Negative for difficulty urinating, dysuria, frequency and urgency. Musculoskeletal: Negative for back pain. Neurological: Negative for dizziness and light-headedness. All other systems reviewed and are negative. Allergies Allergen Reactions Cephalexin Nausea And Vomiting Latex Itching Other reaction(s): itching Outpatient Medications Prior to Visit Medication Sig Dispense Refill citalopram (CeleXA) 10 MG tablet Take 1 tablet (10 mg) by mouth daily. 90 tablet 0 metoprolol tartrate (Lopressor) 25 MG tablet Take 25 mg by mouth 2 times daily. Volnea 0.15-0.02/0.01 MG (03/01) tablet ondansetron (Zofran) 4 MG tablet Take 4 mg by mouth. (Patient not taking: Reported on 06/13/2024) No facility-administered medications prior to visit. 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 Sonja Devi CNP Social History Tobacco Use Smoking status: Never Smokeless tobacco: Never Substance Use Topics Alcohol use: Never Past Surgical History: Procedure Laterality Date RETINAL DETACHMENT SURGERY Right 01/2023 Family History Problem Relation Name Age of Onset Anxiety disorder Mother Emerita High Blood Pressure Father Natalio alive Diabetes Father Natalio Heart disease Father Natalio No Known Problems Brother 1/2 No Known Problems Brother 1/2 No Known Problems Paternal Grandmother age 93 Coronary artery disease Paternal Grandfather Objective BP 100/64 Pulse 84 Temp 36.9 C (98.4 F) (Temporal) Ht 5' 5" (1.651 m) Wt 171 lb 6.4 oz (77.7 kg) SpO2 100% BMI 28.52 kg/m Physical Exam Vitals reviewed. Constitutional: General: She is not in acute distress. Appearance: Normal appearance. She is not ill-appearing or toxic-appearing. HENT: Right Ear: Tympanic membrane and ear canal normal. Left Ear: Tympanic membrane and ear canal normal. Mouth/Throat: Mouth: Mucous membranes are moist. Pharynx: No oropharyngeal exudate or posterior oropharyngeal erythema. Eyes: General: No scleral icterus. Conjunctiva/sclera: Conjunctivae normal. Pupils: Pupils are equal, round, and reactive to light. Cardiovascular: Rate and Rhythm: Normal rate and regular rhythm. Heart sounds: Normal heart sounds. No murmur heard. Pulmonary: Effort: Pulmonary effort is normal. No respiratory distress. Breath sounds: Normal breath sounds. Abdominal: General: Bowel sounds are normal. There is no distension. Palpations: Abdomen is soft. Tenderness: There is no abdominal tenderness. There is no guarding. Musculoskeletal: Cervical back: Normal range of motion and neck supple. Right lower leg: No edema. Left lower leg: No edema. Skin: General: Skin is warm and dry. Neurological: Mental Status: She is alert. Psychiatric: Mood and Affect: Mood normal. Data Reviewed and Summarized Labs: Imaging/Testing: Bertha Magaña PA-C 06/13/2024 Please note that portions of this note may have been completed with voice recognition software. Documentation reviewed prior to signing but minor errors in field account manager may have occurred. documented in this encounter [facility] 01-03-2024 Telephone encounter Note Pharmacy said they did not have any refills for me. I have a week and a half before I run out Rx loaded [facility] 01-03-2024 Miscellaneous Notes Pharmacy said they did not have any refills for me. I have a week and a half before I run out Rx loaded documented in this encounter [facility] 12-14-2023 Evaluation + Plan note Associated Problem(s): Palpitations Stable continues on metoprolol 25 mg daily continues to follow-up with cardiology will obtain echocardiogram in the near future. [facility] 12-14-2023 Miscellaneous Notes Associated Problem(s): Palpitations Stable continues on metoprolol 25 mg daily continues to follow-up with cardiology will obtain echocardiogram in the near future. Associated Problem(s): Grief reaction Patient reports doing remarkably well on citalopram 10 mg. Continues to get her life back in order continues to work part-time continues to follow-up with counseling. Will continue for 6 months and reevaluate. documented in this encounter [facility] 12-14-2023 Miscellaneous Notes Associated Problem(s): Palpitations Stable continues on metoprolol 25 mg daily continues to follow-up with cardiology will obtain echocardiogram in the near future. Associated Problem(s): Grief reaction Patient reports doing remarkably well on citalopram 10 mg. Continues to get her life back in order continues to work part-time continues to follow-up with counseling. Will continue for 6 months and reevaluate. Addended by: BERTHA MAGAÑA on: 12/15/2023 10:34 AM Modules accepted: Level of Service documented in this encounter [facility] 12-14-2023 Evaluation + Plan note Associated Problem(s): Grief reaction Patient reports doing remarkably well on citalopram 10 mg. Continues to get her life back in order continues to work part-time continues to follow-up with counseling. Will continue for 6 months and reevaluate. [facility] 12-14-2023 History of Presen t illness Narrative Images from the original note were not included. [facility] [address] [place] [address] [address] [facility] [address] Dept: [phone] Dept Loc: [phone] Visit type: Established Patient Reason for Visit: Anxiety (Follow up) Assessment and Plan 1. Palpitations Assessment & Plan: Stable continues on metoprolol 25 mg daily continues to follow-up with cardiology will obtain echocardiogram in the near future. 2. Grief reaction Comments: Will start citalopram continue with counseling and reevaluate in 4 weeks Assessment & Plan: Patient reports doing remarkably well on citalopram 10 mg. Continues to get her life back in order continues to work part-time continues to follow-up with counseling. Will continue for 6 months and reevaluate. Orders: - citalopram (CeleXA) 10 MG tablet; Take 1 tablet (10 mg) by mouth daily., Starting 12/14/2023, Until 06/11/2024, Normal Follow up in about 6 months (around 06/14/2024). 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 He abruptly about a month ago and she has been grieving. Patient was seen about a month ago and shared decision making with her and her mom is agreeable to start on medication. She presents back for follow-up today to discuss response to the medication and continued care. Patient reports life is going well. She is since last April her very supportive he works full-time she is currently back to work part-time there is spending time together planning on traveling she states she is still crying and grieving in her own way but her life seems to be much better and she is moving on to getting her affairs back in order and feeling much better at this point time she is happy to be on the medication states it seems to be working for she has no other acute concerns at this point time. Sleeping well no other reported issues or concerns. Had a bout of tachycardia or palpitations she continues to follow-up with cardiology she is on metoprolol. They are going to continue to follow-up with her in 6 months she is going to schedule an outpatient echocardiogram planned with cardiology as the probably discontinue the metoprolol as long as echocardiogram is normal bleeding that the palpitations and tachycardia was also stress-induced. , Review of Systems Constitutional: Negative for chills and fever. HENT: Negative for congestion and sore throat. Respiratory: Negative for cough and shortness of breath. Cardiovascular: Negative for chest pain. Gastrointestinal: Negative for abdominal pain, diarrhea, nausea and vomiting. Neurological: Negative for dizziness and light-headedness. Psychiatric/Behavioral: Negative for self-injury, sleep disturbance and suicidal ideas. The patient is nervous/anxious. All other systems reviewed and are negative. Allergies Allergen Reactions Cephalexin Nausea And Vomiting Latex Itching Other reaction(s): itching Outpatient Medications Prior to Visit Medication Sig Dispense Refill metoprolol tartrate (Lopressor) 25 MG tablet Take 25 mg by mouth 2 times daily. ondansetron (Zofran) 4 MG tablet Take 4 mg by mouth. Volnea 0.15-0.02/0.01 MG (03/01) tablet citalopram (CeleXA) 10 MG tablet Take 1 tablet (10 mg) by mouth daily. 30 tablet 1 No facility-administered medications prior to visit. 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 Sonja Devi CNP Social History Tobacco Use Smoking status: Never Smokeless tobacco: Never Substance Use Topics Alcohol use: Never Past Surgical History: Procedure Laterality Date RETINAL DETACHMENT SURGERY Right 01/2023 Family History Problem Relation Name Age of Onset Anxiety disorder Mother Emerita High Blood Pressure Father Natalio alive Diabetes Father Natalio Heart disease Father Natalio No Known Problems Brother 1/2 No Known Problems Brother 1/2 No Known Problems Paternal Grandmother age 93 Coronary artery disease Paternal Grandfather Objective BP 120/74 (BP Location: Left arm, Patient Position: Sitting, BP Cuff Size: Adult) Pulse 70 Ht 5' 5" (1.651 m) Wt 168 lb (76.2 kg) LMP 12/06/2023 (Exact Date) SpO2 100% BMI 27.96 kg/m Physical Exam Vitals reviewed. Constitutional: General: She is not in acute distress. Appearance: Normal appearance. She is not ill-appearing or toxic-appearing. Eyes: General: No scleral icterus. Conjunctiva/sclera: Conjunctivae normal. Pupils: Pupils are equal, round, and reactive to light. Cardiovascular: Rate and Rhythm: Normal rate and regular rhythm. Heart sounds: Normal heart sounds. Pulmonary: Effort: Pulmonary effort is normal. No respiratory distress. Breath sounds: Normal breath sounds. Musculoskeletal: Cervical back: Normal range of motion and neck supple. Skin: General: Skin is warm and dry. Neurological: Mental Status: She is alert. Psychiatric: Mood and Affect: Mood normal. Data Reviewed and Summarized Labs: Imaging/Testing: Bertha Magaña PA-C 12/14/2023 Please note that portions of this note may have been completed with voice recognition software. Documentation reviewed prior to signing but minor errors in field account manager may have occurred. documented in this encounter [facility] 12-14-2023 History of Presen t illness Narrative Images from the original note were not included. [facility] [address] [place] [address] [address] [facility] [address] Dept: [phone] Dept Loc: [phone] Visit type: Established Patient Reason for Visit: Anxiety (Follow up) Assessment and Plan 1. Palpitations Assessment & Plan: Stable continues on metoprolol 25 mg daily continues to follow-up with cardiology will obtain echocardiogram in the near future. 2. Grief reaction Comments: Will start citalopram continue with counseling and reevaluate in 4 weeks Assessment & Plan: Patient reports doing remarkably well on citalopram 10 mg. Continues to get her life back in order continues to work part-time continues to follow-up with counseling. Will continue for 6 months and reevaluate. Orders: - citalopram (CeleXA) 10 MG tablet; Take 1 tablet (10 mg) by mouth daily., Starting 12/14/2023, Until 06/11/2024, Normal Follow up in about 6 months (around 06/14/2024). 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 He abruptly about a month ago and she has been grieving. Patient was seen about a month ago and shared decision making with her and her mom is agreeable to start on medication. She presents back for follow-up today to discuss response to the medication and continued care. Patient reports life is going well. She is since last April her very supportive he works full-time she is currently back to work part-time there is spending time together planning on traveling she states she is still crying and grieving in her own way but her life seems to be much better and she is moving on to getting her affairs back in order and feeling much better at this point time she is happy to be on the medication states it seems to be working for she has no other acute concerns at this point time. Sleeping well no other reported issues or concerns. Had a bout of tachycardia or palpitations she continues to follow-up with cardiology she is on metoprolol. They are going to continue to follow-up with her in 6 months she is going to schedule an outpatient echocardiogram planned with cardiology as the probably discontinue the metoprolol as long as echocardiogram is normal bleeding that the palpitations and tachycardia was also stress-induced. , Review of Systems Constitutional: Negative for chills and fever. HENT: Negative for congestion and sore throat. Respiratory: Negative for cough and shortness of breath. Cardiovascular: Negative for chest pain. Gastrointestinal: Negative for abdominal pain, diarrhea, nausea and vomiting. Neurological: Negative for dizziness and light-headedness. Psychiatric/Behavioral: Negative for self-injury, sleep disturbance and suicidal ideas. The patient is nervous/anxious. All other systems reviewed and are negative. Allergies Allergen Reactions Cephalexin Nausea And Vomiting Latex Itching Other reaction(s): itching Outpatient Medications Prior to Visit Medication Sig Dispense Refill metoprolol tartrate (Lopressor) 25 MG tablet Take 25 mg by mouth 2 times daily. ondansetron (Zofran) 4 MG tablet Take 4 mg by mouth. Volnea 0.15-0.02/0.01 MG (/) tablet citalopram (CeleXA) 10 MG tablet Take 1 tablet (10 mg) by mouth daily. 30 tablet 1 No facility-administered medications prior to visit. 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 Belem Luisana, Kim[place] [employer] Social History Tobacco Use Smoking status: Never Smokeless tobacco: Never Substance Use Topics Alcohol use: Never Past Surgical History: Procedure Laterality Date RETINAL DETACHMENT SURGERY Right 01/2023 Family History Problem Relation Name Age of Onset Anxiety disorder Mother Emerita High Blood Pressure Father Natalio alive Diabetes Father Natalio Heart disease Father Natalio No Known Problems Brother 1/2 No Known Problems Brother 1/2 No Known Problems Paternal Grandmother age 93 Coronary artery disease Paternal Grandfather Objective BP 120/74 (BP Location: Left arm, Patient Position: Sitting, BP Cuff Size: Adult) Pulse 70 Ht 5' 5" (1.651 m) Wt 168 lb (76.2 kg) LMP 12/06/2023 (Exact Date) SpO2 100% BMI 27.96 kg/m Physical Exam Vitals reviewed. Constitutional: General: She is not in acute distress. Appearance: Normal appearance. She is not ill-appearing or toxic-appearing. Eyes: General: No scleral icterus. Conjunctiva/sclera: Conjunctivae normal. Pupils: Pupils are equal, round, and reactive to light. Cardiovascular: Rate and Rhythm: Normal rate and regular rhythm. Heart sounds: Normal heart sounds. Pulmonary: Effort: Pulmonary effort is normal. No respiratory distress. Breath sounds: Normal breath sounds. Musculoskeletal: Cervical back: Normal range of motion and neck supple. Skin: General: Skin is warm and dry. Neurological: Mental Status: She is alert. Psychiatric: Mood and Affect: Mood normal. Data Reviewed and Summarized Labs: Imaging/Testing: Bertha Magaña PA-C 12/14/2023 Please note that portions of this note may have been completed with voice recognition software. Documentation reviewed prior to signing but minor errors in field account manager may have occurred. documented in this encounter [facility] 12-14-2023 Note Addended by: BERTHA MAGAÑA on: 12/15/2023 10:34 AM Modules accepted: Level of Service [facility] 11-15-2023 History of Presen t illness Narrative Images from the original note were not included. [facility] [address] [place] [address] [address] [facility] [address] Dept: [phone] Dept Loc: [phone] Patient was identified and seen today via Telehealth by agreement and consent. I used the following Telehealth technology: Audio and video capabilities. Patient location: Patient Location: Home. This patient encounter is appropriate and reasonable under the circumstances: availability . The patient has been advised of the potential risks and limitations of this mode of treatment (including but not limited to the absence of in-person examination) and has agreed to be treated in a remote fashion in spite of them. Any and all of the patient's/patient's family's questions on this issue have been answered and I have made no promises or guarantees to the patient. The patient has also been advised to contact this office for worsening conditions or problems, and seek emergency medical treatment and/or call 911 if the patient deems either necessary. The patient stated that they are currently in the [facility]. If the patient is a minor, permission has been obtained by the parent or guardian for the patient to receive medical care at this visit. Assessment/Plan 1. Grief reaction Comments: Will start citalopram continue with counseling and reevaluate in 4 weeks Orders: - citalopram (CeleXA) 10 MG tablet; Take 1 tablet (10 mg) by mouth daily., Starting 11/15/2023, Until Wed01/14/2024, Normal 2. Skin abrasion Comments: Encouraged wash daily soap water use bacitracin. 3. Hypokalemia Comments: will continue to monitor, advised on food to eat to supplement the potassium and will recheck in the future 4. Tachycardia Comments: multifactoral, continue follow up with cardiology and continue metoprolol 25mg bid. -Acute situational grieving patient has been the primary caregiver of her father had been ill for the last 2 years. He abruptly approximately a month ago and she has been grieving. She continues to follow-up with counseling she started back in counseling and will do is much as able to with counseling. She is having a difficult time coping and dealing but its only been a month we did spend a great deal of time discussing this that she needs to be able to grieve in her own way and her own time. Mom was present throughout the entire conversation. There is no concerns for suicidal or homicidal ideation. Mom is currently on citalopram like the patient to try the patient with shared decision making is agreeable to try citalopram and continue with counseling and will reevaluate in approximately 4 weeks or sooner as needed. Test spent with the patient was 30 minutes. Follow up in about 4 weeks (around 12/13/2023) for Recheck. Subjective June Schumacher is a 23 y.o. who presents for VV for complaints of: Chief complaint: Chief Complaint Patient presents with Rapid Heart Rate Patient reports onset of rapid heart rate recent ER evaluation was done patient believes a lot of this is secondary to grieving secondary to the passing of her father recently. Rapid Heart Rate Associated symptoms include fatigue, nausea and palpitations (racing heart rate as described). Pertinent negative symptoms include no chest pain, no diaphoresis, no shortness of breath and no vomiting. 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 He abruptly about a month ago and she has been grieving. She had sudden onset of a rapid heart rate approximately 5 to 6 days ago she was seen in the ER formal testing was done which did show her thyroid to be normal at 0.94 white count was up a little bit 13,000 but was probable stress response related. And her potassium she believes was around 3.1 or 3.2 but she does report some occasional diarrhea more recently which could subsequently because of this. She states she is having a hard time eating after send dad got sick she is down about 55 pounds mom's concern is she is not eating and drinking a whole lot now but patient does states she goes through periods where she will eat and she just has no appetite from time to time and gets extremely nauseous and then other times she will have an appetite. She also does states she has some diarrhea but states it is not terribly unusual especially in the time of her menses. She does report the nausea but no vomiting she does state she is sleeping okay and she denies any suicidal homicidal ideation. The ER did place her on Lopressor 25 mg twice daily she is scheduled follow-up with cardiology at the end of this month. And she did a 48-hour Holter monitor which did cause some burning to her skin where the stickers were placed over her skin we did talk about treatment of minor wounds and using bacitracin. Allergies Allergen Reactions Cephalexin Nausea And Vomiting Latex Itching Other reaction(s): itching Review of Systems Constitutional: Positive for activity change, appetite change and fatigue. Negative for diaphoresis and fever. HENT: Negative for congestion. Respiratory: Negative for cough and shortness of breath. Cardiovascular: Positive for palpitations (racing heart rate as described). Negative for chest pain. Gastrointestinal: Positive for diarrhea and nausea. Negative for abdominal pain and vomiting. Musculoskeletal: Negative for arthralgias. Skin: Positive for rash (superficial wounds from holter monitor). Psychiatric/Behavioral: Positive for decreased concentration and dysphoric mood. Negative for behavioral problems, confusion, self-injury, sleep disturbance and suicidal ideas. The patient is nervous/anxious. Physical exam is extremely limited based on the nature of the encounter as this is a virtual encounter. Patient through the use of virtual technology does not appear septic or toxic or in acute distress conversant without difficulty. No appreciable signs of respiratory distress or cyanosis. Conversant throughout the entire and encounter. Vital signs not immediately available. Patient understands the nature of the virtual visit and that the examination is limited at this time. Patient did have an area of abrasion/superficial burn to the left lower chest wall where Holter monitor sticker was placed. There is no signs of obvious infection but difficult to assess through virtual encounter. Patient was emotional and teary-eyed at times but very pleasant is able to make direct eye contact understandable given her underlying history of grief reaction dealing with the passing of her father. Mom is at bedside and supportive for the patient. [x] PMH, allergies, and social history reviewed and updated as appropriate [x] Medication list reviewed/updated [x] Allergies reviewed/updated [x] Problem list reviewed/updated [] Patient requests medication refills, see below for orders. Bertha Magaña PA-C 11/15/2023 10:41 AM documented in this encounter [facility] 03-29-2023 Evaluation + Plan note Associated Problem(s): Anxiety and depression Patient currently doing remarkably well has stopped all of her medicine she currently uses medical marijuana and sees a trauma therapist and reports that her symptoms are going well and she has no acute concerns. [facility] 03-29-2023 Miscellaneous Notes Associated Problem(s): Anxiety and depression Patient currently doing remarkably well has stopped all of her medicine she currently uses medical marijuana and sees a trauma therapist and reports that her symptoms are going well and she has no acute concerns. documented in this encounter [facility] 03-29-2023 History of Presen t illness Narrative Images from the original note were not included. [address] [address] Dept: [phone] Dept Loc: [phone] Visit type: Established Patient Reason for Visit: Follow-up (6 month) Assessment and Plan 1. Anxiety and depression Comments: Sees trauma therapist currently using medical marijuana has no acute concerns stopped all Paxil doing well Assessment & Plan: Patient currently doing remarkably well has stopped all of her medicine she currently uses medical marijuana and sees a trauma therapist and reports that her symptoms are going well and she has no acute concerns. 2. Right retinal detachment Comments: Recently had surgery in the right eye continues to follow-up with ophthalmology no acute concerns Follow up in about 1 year (around 03/29/2024). Subjective HPI this is a 22-year-old female was previously healthy does suffer from from some underlying anxiety depression was previously on Paxil and was seen in November of this year for generalized sensation of fatigue had a full complement of blood work done at that time since was unremarkable. She returns to the office today for concerns of none, and stopped taking the paxil, started seeing a trauma therapist, diagnosed with PTSD, and received her medical card. Recently had detached retina on right eye, getting in 6 weeks. Has been with current fiance for 7 years. Reports some mild congestion but otherwise no concerns. But otherwise states she is doing well no sore throat no dysphonia dysphagia no problems in during swallowing or any other acute concerns. Review of Systems Constitutional: Negative for chills and fever. HENT: Negative for congestion and sore throat. Eyes: Positive for redness and visual disturbance. Negative for photophobia, pain and discharge. Mild swelling noted to the right eyelid status post recent surgery for detached right retina Respiratory: Negative for cough and shortness of breath. Cardiovascular: Negative for chest pain. Gastrointestinal: Negative for abdominal pain, diarrhea, nausea and vomiting. Genitourinary: Negative for difficulty urinating, dysuria, frequency and urgency. Musculoskeletal: Negative for back pain. Neurological: Negative for dizziness and light-headedness. All other systems reviewed and are negative. Allergies Allergen Reactions Cephalexin Nausea And Vomiting Latex Itching Other reaction(s): itching Outpatient Medications Prior to Visit Medication Sig Dispense Refill Adapalene-Benzoyl Peroxide (Epiduo Forte) 0.3-2.5 % gel Apply topically. Adapalene-Benzoyl Peroxide 0.3-2.5 % gel ofloxacin (Ocuflox) 0.3 % ophthalmic solution instill 1 drop into right eye four times a day prednisoLONE acetate (Pred-Forte) 1 % ophthalmic suspension instill 1 drop four times a day spironolactone (Aldactone) 50 MG tablet Take 50 mg by mouth every morning. Volnea 0.15-0.02/0.01 MG (03/01) tablet PARoxetine (Paxil) 10 MG tablet Take 1 tablet (10 mg) by mouth daily for 90 doses. (Patient not taking: Reported on 03/29/2023) 30 tablet 1 No facility-administered medications prior to visit. Past Medical History: Diagnosis Date Anxiety and depression 2016 Family history of diabetes mellitus in father Uses oral contraception Visit for routine binder selector exam Sonja Devi CNP Social History Tobacco Use Smoking status: Never Smokeless tobacco: Never Substance Use Topics Alcohol use: Never History reviewed. No pertinent surgical history. Family History Problem Relation Name Age of Onset Anxiety disorder Mother Emerita High Blood Pressure Father Natalio alive Diabetes Father Natalio Heart disease Father Natalio No Known Problems Brother 1/2 No Known Problems Brother 1/2 No Known Problems Paternal Grandmother age 93 Coronary artery disease Paternal Grandfather Objective BP 111/68 (BP Location: Left arm, Patient Position: Sitting, BP Cuff Size: Large adult) Pulse 76 Temp 36.5 C (97.7 F) (Temporal) Ht 5' 5" (1.651 m) Wt 187 lb (84.8 kg) SpO2 98% BMI 31.12 kg/m Physical Exam Vitals reviewed. Constitutional: General: She is not in acute distress. Appearance: Normal appearance. She is not ill-appearing or toxic-appearing. Eyes: General: No scleral icterus. Conjunctiva/sclera: Conjunctivae normal. Pupils: Pupils are equal, round, and reactive to light. Comments: Small subconjunctival hemorrhage noted in the inferior pole medially of the right eye with some swelling of the right upper eyelid status post recent surgery Cardiovascular: Rate and Rhythm: Normal rate and regular rhythm. Heart sounds: Normal heart sounds. Pulmonary: Effort: Pulmonary effort is normal. No respiratory distress. Breath sounds: Normal breath sounds. Musculoskeletal: Cervical back: Normal range of motion and neck supple. Skin: General: Skin is warm and dry. Neurological: Mental Status: She is alert. Psychiatric: Mood and Affect: Mood normal. Data Reviewed and Summarized Labs: Imaging/Testing: Bertha Magaña PA-C 03/29/2023 Please note that portions of this note may have been completed with voice recognition software. Documentation reviewed prior to signing but minor errors in field account manager may have occurred. documented in this encounter [facility] 11-23-2022 History of Presen t illness Narrative Images from the original note were not included. [facility] [address] [facility] [address] Dept: [phone] Dept Loc: [phone] Visit type: Established Patient Reason for Visit: low bp and still not feeling well Assessment and Plan 1. Other fatigue Comments: Generalized fatigue could be stress/anxiety driven will evaluate for possible dehydration versus anemia. Orders: - CBC auto differential - Iron and TIBC - TSH - Comprehensive metabolic panel 2. Weight loss Comments: Unplanned weight loss suspect secondary to stress we will evaluate electrolytes and CBC for anemia. Orders: - CBC auto differential - Iron and TIBC - TSH - Comprehensive metabolic panel Follow up in about 1 year (around 11/24/2023). Patient does not appear to be in any acute distress she is pleasant cooperative and conversant. She does not appear syncopal. Little signs were checked here and stable I did recheck a manual blood pressure systolic was 108. She did not overtly appear anemic however she did report menses being heavy and longer than usual. We will for this we will check a CBC to make sure that she is not anemic and make sure is no signs of iron deficiency. She does report being under significant mount of stress as she had to quit her job sell her car and she is basically staying at home to take care of her father. She is dealing with counseling at this point time I encouraged her to continue to do so. Report any new symptoms or any changes. All questions were answered at the bedside patient was comfortable with this plan. Subjective HPI This is a 22 yo female with history of anxiety and depression, currently taking paxil for several years, presents to the office today calling the office several days ago concerned her blood pressure was low and just not feeling good. Tight chest, run down Dad massive stroke, home and not doing well, quit job sold car and moved home, seeing a trauma therapist, as she watched her dad have a stroke, and medical ordeal, and being placed on a vent. 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 Trying to drink at least 10 bottles of water a day. Watching weight but down 30 lbs over the past 6 months, she does state at times she feels like she might pass out but does readily attribute to her life of stress more recently she is planning on wedding she states she is not sure whether she was planning a wedding or as her dad is in bad shape. Which is led to a significant mount of stress in her life. She does states she has adequate support though she is going to counseling and she has support with her mother and her fianc . Review of Systems Constitutional: Positive for appetite change, fatigue and unexpected weight change. Negative for chills, diaphoresis and fever. Respiratory: Positive for chest tightness. Negative for cough, shortness of breath and wheezing. Cardiovascular: Negative for chest pain and palpitations. Gastrointestinal: Negative for abdominal pain, diarrhea, nausea and vomiting. Genitourinary: Positive for vaginal bleeding (Menses are more heavy than longer than usual). Negative for difficulty urinating. Neurological: Positive for light-headedness. Negative for dizziness, seizures, speech difficulty, weakness and headaches. Allergies Allergen Reactions Cephalexin Nausea And Vomiting Latex Itching Other reaction(s): itching Outpatient Medications Prior to Visit Medication Sig Dispense Refill PARoxetine (Paxil) 10 MG tablet Take 1 tablet (10 mg) by mouth daily for 90 doses. 30 tablet 1 Volnea 0.15-0.02/0.01 MG (03/01) tablet No facility-administered medications prior to visit. Past Medical History: Diagnosis Date Anxiety and depression 2016 Family history of diabetes mellitus in father Uses oral contraception Visit for routine binder selector exam Sonja Devi CNP Social History Tobacco Use Smoking status: Never Smokeless tobacco: Never Substance Use Topics Alcohol use: Never History reviewed. No pertinent surgical history. Family History Problem Relation Name Age of Onset Anxiety disorder Mother Emerita High Blood Pressure Father Natalio alive Diabetes Father Natalio Heart disease Father Natalio No Known Problems Brother 1/2 No Known Problems Brother 1/2 No Known Problems Paternal Grandmother age 93 Coronary artery disease Paternal Grandfather Objective BP 108/82 (BP Location: Left arm, Patient Position: Sitting, BP Cuff Size: Adult) Pulse 79 Temp 36.5 C (97.7 F) (Temporal) Ht 5' 5" (1.651 m) Wt 196 lb (88.9 kg) SpO2 96% BMI 32.62 kg/m Physical Exam Vitals reviewed. Constitutional: General: She is not in acute distress. Appearance: Normal appearance. She is not ill-appearing or toxic-appearing. HENT: Right Ear: Tympanic membrane and ear canal normal. Left Ear: Tympanic membrane and ear canal normal. Mouth/Throat: Mouth: Mucous membranes are moist. Pharynx: Oropharynx is clear. Eyes: Extraocular Movements: Extraocular movements intact. Pupils: Pupils are equal, round, and reactive to light. Cardiovascular: Rate and Rhythm: Normal rate and regular rhythm. Heart sounds: Normal heart sounds. Pulmonary: Effort: Pulmonary effort is normal. No respiratory distress. Breath sounds: Normal breath sounds. Abdominal: General: Bowel sounds are normal. Palpations: Abdomen is soft. Musculoskeletal: Cervical back: Normal range of motion and neck supple. No rigidity. Lymphadenopathy: Cervical: No cervical adenopathy. Skin: General: Skin is warm and dry. Neurological: Mental Status: She is alert. Psychiatric: Mood and Affect: Mood normal. Data Reviewed and Summarized Labs: Imaging/Testing: Bertha Magaña PA-C 11/23/2022 Please note that portions of this note may have been completed with voice recognition software. Documentation reviewed prior to signing but minor errors in field account manager may have occurred. documented in this encounter [facility] 10-01-2022 History of Presen t illness Narrative Images from the original note were not included. [address] [address] Visit type: Established Patient Reason for Visit: 6 Month Follow-up Assessment / Plan: June was seen today for 6 month follow-up. Diagnoses and all orders for this visit: Anxiety and depression (Primary) Comments: Improving with therapy. Decrease Paxil to 10 mg 1/2 daily Other orders - PARoxetine (Paxil) 10 MG tablet; Take 1 tablet (10 mg) by mouth daily for 90 doses. Subjective: Patient ID: June Albert is a 22 y.o. female. HPI non-smoker with history of anxiety depression on Paxil for a few years presents for refill on her medicine. Of note her father had a substantial stroke with a HP and aphasia requiring a lot of home health care and she is giving him therapy at home. She did graduate college this past year and is stable pursuing a job in [place]. Of note she is engaged to be in April to Alex Cheng. She is also attending counseling with [facility] in [place], [place] dealing with PTSD due to her father's medical problems. Review of Systems [employer] AND VALIDATION ENGINEER exams up-to-date. Regular menses on oral contraceptive. No recent ENT concerns. No cardiovascular respiratory worries. No change in bowels or bladder. Allergies Allergen Reactions Cephalexin Nausea And Vomiting Latex Itching Other reaction(s): itching Current Outpatient Medications on File Prior to Visit Medication Sig Dispense Refill Volnea 0.15-0.02/0.01 MG (03/01) tablet [DISCONTINUED] PARoxetine (Paxil) 10 MG tablet Take 1 tablet (10 mg) by mouth daily. 30 tablet 0 No current facility-administered medications on file prior to visit. Patient Active Problem List Diagnosis Anxiety and depression Anxiety Family history of diabetes mellitus in father Uses oral contraception Social History Tobacco Use Smoking status: Never Smokeless tobacco: Never Substance Use Topics Alcohol use: Never History reviewed. No pertinent surgical history. Family History Problem Relation Name Age of Onset Anxiety disorder Mother Emerita High Blood Pressure Father Natalio alive Diabetes Father Natalio Heart disease Father Natalio No Known Problems Brother 1/2 No Known Problems Brother 1/2 No Known Problems Paternal Grandmother age 93 Coronary artery disease Paternal Grandfather Objective: BP 120/76 (BP Location: Left arm, Patient Position: Sitting, BP Cuff Size: Large adult) Pulse 69 Temp 36.6 C (97.8 F) (Temporal) Ht 5' 5" (1.651 m) Wt 194 lb (88 kg) SpO2 98% BMI 32.28 kg/m Physical Exam pleasant alert. Cooperative. She has good insight eye contact and is well-groomed. No adenopathy. No thyroid lesions. Reflexes normal. Heart is regular. Lungs are clear. Abdomen without pain hepatosplenomegaly or masses. Extremities pink without edema documented in this encounter [facility] [employer] 09-07-2022 Telephone encounter Note Next appt 10/01/22 [facility] [employer] 09-07-2022 Miscellaneous Notes Next appt 10/01/22 documented in this encounter [facility] Evaluation note Diagnosis Onset Date Encounter for routine gyneco logical examination noneactive [facility] Work Phone: Evaluation note* Diagnosis Other fatigue- Primary Weight loss Loss of weight documented in this encounter [facility]* Diagnosis Anxiety and depression- Primary Right retinal detachment Unspecified retinal detachment documented in this encounter [facility]* Diagnosis Acne vulgaris- Primary Other [facility] Diagnosis Grief reaction- Primary Adjustment disorder with depressed mood Skin abrasion Abrasion or friction burn of other, multiple, and unspecified sites, without mention of infection Hypokalemia Hypopotassemia Tachycardia Unspecified tachycardia [facility] assessment information [facility] Work Phone: [facility]* Diagnosis Palpitations- Primary Grief reaction Adjustment disorder with depressed mood [facility] Diagnosis Palpitations- Primary Grief reaction Adjustment disorder with depressed mood [facility] Diagnosis Grief reaction Adjustment disorder with depressed mood [facility] Diagnosis Anxiety and depression- Primary Right retinal detachment Unspecified retinal detachment Palpitations- Primary Grief reaction Adjustment disorder with depressed mood Anxiety- Primary Anxiety state, unspecified Need for vaccination Need for prophylactic vaccination and inoculation against unspecified single disease documented in this encounter [facility]* Diagnosis Anxiety and depression- Primary [facility]* Diagnosis Anxiety and depression- Primary Right retinal detachment Unspecified retinal detachment Palpitations- Primary Grief reaction Adjustment disorder with depressed mood Anxiety- Primary Anxiety state, unspecified Need for vaccination Need for prophylactic vaccination and inoculation against unspecified single disease Major depressive disorder with single episode, in full remission (HCC) documented in this encounter [facility] for referral (narrative)No reason for referral [facility] Work Phone: Assessments Diagnosis Cough Advance Directives No Advanced Directives Records FoundDocuments on File Type Date Recorded 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 Expl anation Advance Directives and Living Will Power of Linux Admin Engineer Summary Purpose Family History No Family History Records Found Relationship Condition Age at Onset Recorded Date/T deep father Myocardial infarction Unknown Cerebrovascular accident (CVA) Unknown Diabetes mellitus Unknown Relationship Condition Age at Onset Recorded Date/T deep father Myocardial infarction Unknown Cerebrovascular accident (CVA) Unknown Diabetes mellitus Unknown mother Anxiety Unknown father Hypertension Unknown Cardiac disease Unknown grandfather Coronary artery disease Unknown Chief Complaint and Reason for Visit Chief Complaint 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) Reason for Visit Encounter for routin e gynecological examination Chief Complaint 48 HOUR HOLTER Chief Complaint Admit Date Medication Issues January 15, 2025 8:13a m Additional Source Comments INFORMATION SOURCE (unrecogn ized section and content) DATE CREATED AUTHOR [facility]07[facility] DATE CREATED AUTHOR AUTHOR'S ORGANIZ ATION 01/15/2025 [facility] DATE CREATED AUTHOR AUTHOR'S ORGANIZ ATION 02/14/2025 [facility] [employer] [facility] Goals (unrecognized section and content) Goals may be documented in a n alternate sectionGoals may be documented in an alternate sectionGoals may be documented in an alternate section Reason for Visit (unrecogniz ed section and content) Reason Comments low bp and still not feeling well Reason Comments Follow-up 6 month Reason Comments Rapid Heart Rate Patient reports onse t of rapid heart rate recent ER evaluation was done patient believes a lot of this is secondary to grieving secondary to the passing of her father recently. Reason Comments Anxiety Follow up Reason Onset Date Comments Med Refill 01/03/2024 Reason Comments Follow-up On discontinuing med ication Flu Vaccine Patient is agreeable to have flu vaccine in the office Reason Onset Date Comments Med Refill 09/07/2022 Reason Comments 6 Month Follow-up Reason Onset Date Comments Other 01/01/2025 Would like to se randell Mai as PCP, she would like a female provider Reason Comments Establish Care Care Teams (unrecognized sec tion and content) Deliverer Outside Relationship Specialty Start Date End Date Gigi Tamayo DO [address], [place] [phone] PCP - General 05/24/19 Deliverer Outside Relationship Specialty Start Date End Date Gigi Tamayo DO [address] [place], [place] [phone] PCP - General 05/24/19 Deliverer Outside Relationship Specialty Start Date End Date Gigi Tamayo DO [address], [place] [phone] PCP - General 05/24/19 Deliverer Outside Relationship Specialty Start Date End Date José Manuel Roach, [address] [facility] [address] [place] [address] PCP - General Family Medicine 11/11/23 Team Status: Active Member Role Status Dates Dr. José Manuel Roach DO Primary Care Provider Active Team Status: Inactive Member Role Status Dates Dr. José Manuel Roach DO Primary Care Provider Active Dr. Ilsa Manjarrez DO Attending Provider Active Deliverer Outside Relationship Specialty Start Date End Date José Manuel Roach [place], [address] [place] [phone] PCP - General Family Medicine 11/11/23 Deliverer Outside Relationship Specialty Start Date End Date José Manuel Roach [place] [address] [place] [address] PCP - General Family Medicine 11/11/23 Deliverer Outside Relationship Specialty Start Date End Date José Manuel Roach [place], [address] [place] [phone] PCP - General Family Medicine 11/11/23 Deliverer Outside Relationship Specialty Start Date End Date José Manuel Roach [place] [address] [place] [phone] PCP - General Family Medicine 11/11/23 Deliverer Outside Relationship Specialty Start Date End Date Gigi Tamayo DO [address] [place] [phone] PCP - General 05/24/19 Deliverer Outside Relationship Specialty Start Date End Date Gigi Tamayo DO [address] [place] [phone] PCP - General 05/24/19 Team Status: Inactive Member Role Status Dates Dr. José Manuel Roach DO Primary Care Provider Active Start: January 15, 2025 End: January 15, 2025 Dr. José Manuel Roach DO Referring Provider Active Start: January 15, 2025 End: January 15, 2025 Amee Vela [employer]OD ASSEMBLER [employer], [employer]SEM[employer]C Attending Provider Active Start: January 15, 2025 End: January 15, 2025 Deliverer Outside Relationship Specialty Start Date End Date José Manuel Roach DO [address] [place] [address] [place] [phone] PCP - General Family Medicine 11/11/23 Deliverer Outside Relationship Specialty Start Date End Date Loreta Mai DO [address] [place] [phone] PCP - General Internal Medicine 02/13/25 FOR RECORDS PERTAINING TO PATIENTS WHO ARE OR HAVE BEEN ENROLLED IN A CHEMICAL DEPENDENCY/SUBSTANCEABUSE PROGRAM, SOME INFORMATION MAY BE OMITTED. This clinical summary was aggregated from multiple sources. Caution should be exercised in using it in the provision of clinical care. This summary normalizes information from multiple sources, and as a consequence, information in this document may materially change the coding, format and clinical context of patient data. In addition, data may be omitted in some cases. CLINICAL DECISIONS SHOULD BE BASED ON THE PRIMARY CLINICAL RECORDS. [facility] [employer] [facility]. provides no warranty or guarantee of the accuracy or completeness of information in this document.
== END | disposition home or self-care (01) ==
LOC: LABSPEC 16:06
PROVIDERS: PCP Family Medicine; Visit Provider Nurse Practitioner Women's Health
DX: Z12.4 Encounter for screening for malignant neoplasm of cervix (principal)
CPT/HCPCS: 88175; G0145